=== PATIENT | female | born 1975 | race Caucasian/White ===

== ENCOUNTER 2024-04-09 18:37 | Emergency (ER) | payer BC, SELFPAY ==
--- OUTSIDE RECORDS SUMMARY | 2024-04-09 18:40 | XMS_ITS | Referral Summary ---
Author Organization [facility] Address [address] [place] [address] Care Team Providers Care Watch Assembly Inspector Name Role Phone Jacques Farley MD Primary Care Provider [phone] Allergies Active Allergy Reactions Criticality Noted Date Comments Adhesive Rash Medium 07/18/2019 Peels patient's skin off. Fluvirin [id number] Swelling,Nausea And Vomiting High 11/01/2012 Hydromorphone Hcl Nausea And Vomiting Medium 0 Penicillins Rash Medium 01/07/2009 Medications ibuprofen (ADVIL,MOTRIN) 600 mg tablet Take 1 tablet (600 mg total) by mouth 02/19/20 23 Active bacitracin-polymyx in B (POLYSPORIN) ophthalmic ointment APPLY 1 CM STRIP TO LOWER LEFT EYELID EVERY EVENING FOR 1 WEEK 07/22/19 24 Active Besivance 0.6 % drops,suspension 07/22/19 24 Active busPIRone (BUSPAR) 30 mg tablet Take 1 tablet (30 mg total) by mouth 2 (two) times a day Active ciprofloxacin (CILOXAN) 0.3 % ophthalmic solution INSTILL 1 DROP LEFT EYE FOUR TIMES DAILY FOR 7 DAYS 07/19/19 24 Active clonazePAM (KlonoPIN) 1 mg tablet Take 1 tablet (1 mg total) by mouth 3 (three) times a day as needed 10/14/19 21 Active ergocalciferol (VITAMIN D) 50,000 unit capsule Take 1 capsule (50,000 Units total) by mouth once a week 05/30/19 23 Active escitalopram (LEXAPRO) 10 mg tablet TAKE 1/2 TABLET BY MOUTH DAILY FOR 3 DAYS THEN INCREASE TO 1 TABLET DAILY Active levonorgestreL (MIRENA) IUD 1 each by intrauterine route once Active losartan (COZAAR) 50 mg tablet Take 1 tablet (50 mg total) by mouth daily 07/05/19 24 Active meloxicam (MOBIC) 15 mg tablet TAKE ONE TABLET BY MOUTH FOR 10 DAYS THEN NEEDED 01/26/20 17 Active metFORMIN XR (GLUCOPHAGE XR) 500 mg 24 hr tablet Take 3 tablets (1,500 mg total) by mouth daily 07/05/19 24 Active ondansetron ODT (ZOFRAN-ODT) 4 mg disintegrating tablet Take 1 tablet (4 mg total) by mouth every 6 (six) hours as needed 12/14/[address] (PROTONIX) 40 mg EC tablet Take 1 tablet (40 mg total) by mouth 2 (two) times a day 03/22/19 24 Active topiramate (TOPAMAX) 100 mg tablet Take by mouth nightly 11/28/19 20 Active traZODone (DESYREL) 100 mg tablet TAKE 2 TABLETS BY MOUTH AT BEDTIME NEEDED FOR INSOMNIA OR ANXIETY 07/05/19 23 Active ziprasidone (GEODON) 80 mg capsule TAKE 2 CAPSULES BY MOUTH DAILY AT DINNERTIME Active ofloxacin (OCUFLOX) 0.3 % ophthalmic solution Administer 1 drop into the left eye 4 (four) times a day 5 mL 3 07/25/19 24 Active Active Problems Problem Noted Date Diagnosed Date Chronic rhinitis 06/22/2023 Psychophysiological insomnia 07/04/2022 Vitamin D insufficiency 05/18/2020 Bipolar affective disorder, currently depressed, mild (CMS/HCC) 07/10/2019 Attention deficit disorder (ADD) in adult 2019 Essential hypertension 04/24/2019 JOSEP (generalized anxiety disorder) 04/24/2019 Panic attacks 04/24/2019 Pain of foot 01/25/2017 Insulin resistance 07/24/2016 MARY (obstructive sleep apnea) 04/01/2009 Overview (07/25/2023): CPAP trial past. Not using it. Lumbosacral spondylosis 01/07/2009 Overview (07/25/2023): Disc bulge L5-S1 MRI [facility]. About 2002 per the patient and 2005 per the patient Pain with weight up only PCOS (polycystic ovarian syndrome) 01/07/2009 Overview (07/25/2023): Dr. 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
--- OUTSIDE RECORDS SUMMARY | 2024-04-09 18:40 | XMS_ITS | Clinical Summary ---
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 Gender Identity Not on file Sexual Orientation Not on file Plan of Treatment Health Maintenance Due Date Last Done Comments Hepatitis C Virus (HCV) Screening 1977 TdaP Immunization 1977 Hepatitis B Immunization (1 of 3 - 19+ 3-dose series) 1996 Pap Smear 1998 Cervical Cancer Screening (CCS) 06/11/2007 HPV/Cotest 06/11/2007 Discussion re Starting/Frequency of Mammograms 2017 Colonoscopy 2022 Colorectal Cancer Screening 2022 Influenza Immunization (#1) 2023 SARS-COV-2 Immunization ( season) 2023 09/26/2020, 08/29/2020 Respiratory Syncytial Virus (RSV) Immunization (Adult) (1 - 1-dose 75+ series) 2052 Meningococcal Immunization (ACWY) Aged Out No longer eligible b ased on patient's age to complete this topic Pneumococcal Immunization Combined Aged Out No longer eligible b ased on patient's age to complete this topic Rotavirus Immunization Aged Out No lo nger eligible based on patient's age to complete this topic
--- OUTSIDE RECORDS SUMMARY | 2024-04-09 18:40 | XMS_ITS | Patient Health Summary ---
Author Organization [facility] joblocal Address [address] [place] [address] Care Team Providers Care Black And White Printer Operator Name Role Phone Jacques Farley MD Primary Care Provider Arielal Dela Cruz MD Unavailable Corbin Gonzalez MD Unavailable [phone] Melyssa Robles MD, Antonio S Unavailable Cinda Ochoa SEAT TRIMMER-OIL FIELD EQUIPMENT MECHANIC SUPERVISOR Unavailable [phone] Note from [facility],non-owned Affiliates and Associated Physician Practices is amultiple site organization consisting of ambulatory clinics and hospital sitesin [place], [place], [place] and [place]. This disclosure is being madepursuant to the Care Everywhere program and may not contain all information available regarding this patient. Last updated 17.[facility] Allergies * Adhesive Sensitivity(Skin Reactions) -Medium Criticality * Hydromorphone Hcl(Nausea and/or Vomiting) -Medium Criticality * Fluvirin(Swelling,Nausea and/or Vomiting) -High Criticality * Penicillins(Rash) -Medium Criticality * Viloxazine Hcl Er(Nausea and/or Vomiting) * Flu Virus Vaccine(Rash) -Medium Criticality,Inactive * Nsaids,Inactive Medications * Be aware that medications may not be up to date on this document. Alwaysverify current medications with the patient. * levonorgestrel (MIRENA) 20 MCG/DAY IUD 1 (one) device by Intrauterine route once 5-year, replaced 04/2019 * busPIRone (BUSPAR) 30 MG tablet Take 1 (one) tablet by mouth 2 times daily * topiramate (TOPAMAX) 100 MG tablet(Started 11/28/2019) TK 1 T PO HS * clonazePAM (KLONOPIN) 1 MG tablet(Started 10/13/2020) Take 1 (one) tablet by mouth 3 times daily as needed for Anxiety * ziprasidone (GEODON) 80 MG capsule(Started 07/15/2021) Take 1 (one) capsule by mouth daily with dinner * vitamin D, ergocalciferol, (Drisdol) 1.25 MG (88692 UT) capsule(Started 05/29/2022) Take 1 (one) capsule by mouth every 7 days 1 refill by 05/29/2023 * traZODone (Desyrel) 100 MG tablet(Started 07/04/2022) TAKE 2 TABLETS BY MOUTH AT BEDTIME NEEDED FOR INSOMNIA OR ANXIETY * Blood Pressure Monitoring (Blood Pressure Digital Soln) KIT(Started 06/20/2023) * escitalopram (Lexapro) 10 MG tablet(Started 06/08/2023) Take 1.5 (one and one-half) tablets by mouth once daily * metFORMIN ER 24hr (Glucophage XR) 500 MG tablet(Started 07/05/2023) Take 3 (three) tablets by mouth daily with dinner Start 1 tablet after dinner for the first 3 days,then 2 tablets after dinner for 3 days, then 3 tablets daily after dinner. Reasons: Type 2 Diabetes 5 refills by 07/04/2024 * atomoxetine (Strattera) 80 MG capsule(Started 09/28/2023) Take 1 (one) capsule by mouth every morning * hydrOXYzine HCl (Atarax) 25 MG tablet(Started 09/28/2023) Take 1 (one) tablet by mouth 2 times daily as needed (itching or anxiety) * losartan (Cozaar) 50 MG tablet(Started 01/03/2024) Take 1 (one) tablet by mouth once daily Reasons: High Blood Pressure 1 refill by 01/02/2025 * ondansetron, disintegrating, (Zofran ODT) 4 MG tablet(Started 01/03/2024) Take 1 (one) tablet by mouth every 6 hours as needed for Nausea/Vomiting Allow tablet to dissolve on the tongue * omeprazole (PriLOSEC) 40 MG capsule(Started 01/03/2024) Take 1 (one) capsule by mouth once daily Reasons: Gastroesophageal Reflux Disease 5 refills by 01/02/2025 Active Problems Problem Noted Date Diagnosed Date Nausea 01/03/2024 Psychogenic vomiting with nausea 01/03/2024 Chronic rhinitis 06/22/2023 History of colon polyps 02/04/2023 Psychophysiological insomnia 07/04/2022 Vitamin D insufficiency 05/18/2020 Bipolar affective disorder, currently depressed, mild 07/10/2019 Attention deficit disorder (ADD) in adult 2019 JOSEP (generalized anxiety disorder) 04/24/2019 Panic attacks 04/24/2019 Essential hypertension 04/24/2019 Pain of foot 01/25/2017 Insulin resistance 07/24/2016 History of removal of laparoscopic gastric derrell ng device 07/07/2015 Class 2 severe obesity due t o excess calories with serious comorbidity and body mass index (BMI) of 38.0 to 38.9 in adult 10/28/2014 Gastroesophageal reflux disease 12/23/2013 History of bariatric surgery 03/07/2013 History of gestational diabetes 04/01/2009 MARY (obstructive sleep apnea) - moderate with hy poxia 04/01/2009 Lumbosacral spondylosis 01/07/2009 PCOS (polycystic ovarian syndrome) 01/07/2009 Resolved Problems Problem Noted Date Diagnosed Date Resolved Date Abdominal pain, epigastric 02/16/2023 0 07/05/2023 Symptomatic cholelithiasis 02/16/2023 0 07/05/2023 Suspected sleep apnea 11/08/20222022 Hypokalemia 07/10/2019 07/18/2019 Urinary tract infection without hematuria 04/24/2019 06/27/2019 Coordination abnormal 11/10/20172019 Slurred speech 11/09/2017 04/24/2019 Nicotine vapor product user 09/01/2017 01/03/2024 Poison mary 06/14/2016 06/26/2016 Costochondral pain 11/01/2012 05/12/201 5 H/O laparoscopic adjustable gastric banding 04/26/2012 07/04/2016 Visual disturbance 01/04/2011 0 Cigarette smoker 02/26/2010 06/20/2017 Elevated cholesterol 01/07/2009 013 Gestational diabetes 01/07/2009 010 GERD (gastroesophageal reflux disease) 01/07/2009 04/26/2012 Moderate episode of recurren t major depressive disorder 01/07/2009 09/23/2022 Morbid obesity 01/07/2009 09/23/2022 Immunizations * HEP A/HEP B(Given 08/20/1998, 03/23/1998, 02/20/1998) * INFLUENZA VACCINE(Given 11/15/2010, 11/20/2009, 11/20/2008, 11/20/2008) * TDAP (7yrs+)(Given 01/03/2024, 03/07/2013) Social History Tobacco Use Types Packs/Day Years Used Date Smoking Tobacco: Former Cigarettes 1 23 0 02/20/1993 - 02/21/2016 Smokeless Tobacco: Never Tobacco Cessation:Counseling Given: Yes Alcohol Use Standard Drinks/Week Comments Not Currently 0 (1 standard drink = 0.6 oz pur e alcohol) not currently PHQ-2 Answer Date Recorded Patient Health Questionnaire-2 Score 2 01/03/2024 Hunger Vital Sign Answer Date Recorded Within the past 12 months, y ou worried that your food would run out before you got the money to buy more. Never true 02/18/20 23 Within the past 12 months, t he food you bought just didn't last and you didn't have money to get more. Never true 02/17/2023 Sex and Gender Information Value Date Recorded Sex Assigned at Not on file Gender Identity Not on file Sexual Orientation Not on file Last Filed Vital Signs Vital Sign Reading Time Taken Comments Blood Pressure 124/82 01/03/2024 2:40 PM MULTIPLE SLIDE OPERATOR Pulse 92 01/03/2024 2:40 PM MULTIPLE SLIDE OPERATOR Temperature 36.2 C (97.2 F) 01/03/2024 2:40 PM MULTIPLE SLIDE OPERATOR Respiratory Rate 18 03/02/2023 11:28 AM MULTIPLE SLIDE OPERATOR Oxygen Saturation 98% 01/03/2024 2:40 PM MULTIPLE SLIDE OPERATOR Inhaled Oxygen Concentration - - Weight 89.4 kg (197 lb) 01/03/2024 2:40 PM MULTIPLE SLIDE OPERATOR Height 152.4 cm (5') 07/27/2023 8:51 AM CDT Body Mass Index 38.47 07/27/2023 8:51 AM CDT Procedures * HEMOGLOBIN A1C(Performed 11/29/2023) Performed for Insulin resistance * VITAMIN D 25-HYDROXY(Performed 11/29/2023) Performed for Vitamin D insufficiency * TSH(Performed 11/29/2023) Performed for Insulin resistance, JOSEP (generalized anxiety disorder), Essential hypertension * MICROALB/CREAT RATIO URINE RANDOM PANEL(Performed 11/29/2023) Performed for Insulin resistance, Essential hypertension * LIPID PROFILE(Performed 11/29/2023) Performed for Insulin resistance, Essential hypertension * CBC W AUTO DIFFERENTIAL(Performed 11/29/2023) Performed for Insulin resistance, Essential hypertension * COMPREHENSIVE METABOLIC PANEL(Performed 11/29/2023) Performed for Insulin resistance, Essential hypertension * POLYSOMNOGRAPHY 4 OR MORE PARAMETERS WITH CPAP(Performed 04/12/2023) Performed for Hypersomnia, MARY (obstructive sleep apnea) * CARDIAC EKG ORDER(Performed 02/21/2023) * CARDIAC RHYTHM STRIP ORDER(Performed 02/21/2023) * PATHOLOGY TISSUE EXAM (STL)(Performed 02/17/2023) Performed for Diagnosis unknown * ENDOTRACHEAL TUBE NOTE(Performed 02/17/2023) * MN LAP,CHOLECYSTECTOMY(Performed 02/17/2023) Performed for Diagnosis unknown * PHOSPHORUS BLOOD(Performed 02/17/2023) Performed for Abdominal pain, epigastric * MAGNESIUM BLOOD(Performed 02/17/2023) Performed for Abdominal pain, epigastric * CBC W/O DIFFERENTIAL(Performed 02/17/2023) Performed for Abdominal pain, epigastric * COMPREHENSIVE METABOLIC PANEL(Performed 02/17/2023) Performed for Abdominal pain, epigastric * TROPONIN-I HIGH SENSITIVE REFLEX 1HOUR(Performed 02/16/2023) * US ABDOMEN LIMITED(Performed 02/16/2023) Performed for Abdominal pain, epigastric * XR CHEST 1VW PORTABLE(Performed 02/16/2023) Performed for Chest pain, unspecified type * HCG URINE QUALITATIVE(Performed 02/16/2023) * URINALYSIS REFLEX TO MICROSCOPIC NO CULTURE(Performed 02/16/2023) * TROPONIN-I HIGH SENSITIVE BASELINE + 1HR(Performed 02/16/2023) * LIPASE BLOOD(Performed 02/16/2023) * COMPREHENSIVE METABOLIC PANEL(Performed 02/16/2023) * CBC W AUTO DIFFERENTIAL(Performed 02/16/2023) * EKG 12-LEAD(Performed 02/16/2023) Performed for Chest pain, unspecified type * PATHOLOGY SPECIMEN(Performed 01/30/2023) Performed for Cervical high risk HPV (human papillomavirus) test positive * HCG URINE QUAL POCT NOTIFICATION(Performed 01/25/2023) Performed for Preop examination * PATHOLOGY TISSUE EXAM (STL)(Performed 01/25/2023) Performed for Gastroesophageal reflux disease, unspecified whether esophagitis present, History of esophagitis, Screen for colon cancer * HELICOBACTER PYLORI UREASE (STL)(Performed 01/25/2023) Performed for Gastroesophageal reflux disease, unspecified whether esophagitis present, History of esophagitis, Screen for colon cancer * ENDOSCOPY, COLON, SCREENING(Performed 01/25/2023) Performed for Screen for colon cancer * EGD(Performed 01/25/2023) Performed for Gastroesophageal reflux disease, unspecified whether esophagitis present * HCG URINE QUALITATIVE - POCT (IP) INTERFACED(Performed 01/25/2023) * COLONOSCOPY REMOVAL OR ABLATION TUMOR/POLYP/LESION (ANY METHOD)(Performed 01/25/2023) Performed for Gastroesophageal reflux disease, unspecified whether esophagitis present, History of esophagitis, Screen for colon cancer * MN COLONOSCOPY W/SUBMUCOSAL INJ(Performed 01/25/2023) Performed for Gastroesophageal reflux disease, unspecified whether esophagitis present, History of esophagitis, Screen for colon cancer * MN EGD FLEX TRANSORAL W BX SNGL OR MULT(Performed 01/25/2023) Performed for Gastroesophageal reflux disease, unspecified whether esophagitis present, History of esophagitis, Screen for colon cancer * MN COLONOSCOPY, DIAGNOSTIC(Performed 01/25/2023) Performed for Gastroesophageal reflux disease, unspecified whether esophagitis present, History of esophagitis, Screen for colon cancer * MN ED EGD FLEX TRANSORAL DX(Performed 01/25/2023) Performed for Gastroesophageal reflux disease, unspecified whether esophagitis present, History of esophagitis, Screen for colon cancer * PAP IG LB+HPV APTIMA(Performed 01/16/2023) Performed for Well woman exam * EKG 12-LEAD(Performed 12/15/2022) Performed for Other chest pain * HEMOGLOBIN A1C(Performed 05/28/2022) Performed for Insulin resistance * LIPID PROFILE(Performed 05/28/2022) Performed for Essential hypertension, Insulin resistance * CBC W AUTO DIFFERENTIAL(Performed 05/28/2022) Performed for Essential hypertension, Insulin resistance * MICROALB/CREAT RATIO URINE RANDOM PANEL(Performed 05/28/2022) Performed for Essential hypertension, Insulin resistance * COMPREHENSIVE METABOLIC PANEL(Performed 05/28/2022) Performed for Essential hypertension, Insulin resistance * VITAMIN D 25-HYDROXY(Performed 05/28/2022) Performed for Vitamin D insufficiency * VITAMIN D 25-HYDROXY(Performed 11/13/2020) * LIPID PROFILE(Performed 11/13/2020) * CBC W AUTO DIFFERENTIAL(Performed 11/13/2020) * HEMOGLOBIN A1C(Performed 11/13/2020) Performed for Insulin resistance * MICROALB/CREAT RATIO URINE RANDOM PANEL(Performed 11/13/2020) Performed for Essential hypertension, Insulin resistance * COMPREHENSIVE METABOLIC PANEL(Performed 11/13/2020) Performed for Essential hypertension, Insulin resistance * PAP IG LB + HPV HR(Performed 11/25/2019) Performed for LGSIL on Pap smear of cervix * PAP IG LB + HPV HR(Performed 08/26/2019) Performed for LGSIL on Pap smear of cervix * VITAMIN D 25-HYDROXY(Performed 08/26/2019) Performed for Insulin resistance, Class 1 obesity due to excess calories without serious comorbidity with body mass index (BMI) of 33.0 to 33.9 in adult * HEMOGLOBIN A1C(Performed 08/26/2019) Performed for History of gestational diabetes, Insulin resistance, Class 1 obesity due to excess calories without serious comorbidity with body mass index (BMI) of 33.0 to 33.9 in adult * MICROALB/CREAT RATIO URINE RANDOM PANEL(Performed 08/26/2019) Performed for Essential hypertension, Insulin resistance, Class 1 obesity due to excess calories without serious comorbidity with body mass index (BMI) of 33.0 to 33.9 in adult * COMPREHENSIVE METABOLIC PANEL(Performed 08/26/2019) Performed for Essential hypertension, Insulin resistance, Class 1 obesity due to excess calories without serious comorbidity with body mass index (BMI) of 33.0 to 33.9 in adult * CARDIAC RHYTHM STRIP ORDER(Performed 07/19/2019) * CARDIAC EKG ORDER(Performed 07/10/2019) * CALCIUM IONIZED BLOOD(Performed 07/10/2019) Performed for Hypokalemia * RENAL FUNCTION PANEL(Performed 07/10/2019) Performed for Hypokalemia * BASIC METABOLIC PANEL (CALCIUM TOTAL)(Performed 07/09/2019) * URINE MICROSCOPIC ONLY REFLEX TO CULTURE(Performed 07/09/2019) * URINALYSIS REFLEX MICROSCOPIC REFLEX CULTURE(Performed 07/09/2019) * CULTURE URINE(Performed 07/09/2019) * EKG 12-LEAD(Performed 07/09/2019) Performed for Hypokalemia * MAGNESIUM BLOOD(Performed 07/09/2019) * HCG BETA BLOOD QUANTITATIVE(Performed 07/09/2019) * COMPREHENSIVE METABOLIC PANEL(Performed 07/09/2019) * CBC W AUTO DIFFERENTIAL(Performed 07/09/2019) * VITAMIN D 25-HYDROXY(Performed 07/05/2019) Performed for Insulin resistance, Class 1 obesity due to excess calories without serious comorbidity with body mass index (BMI) of 33.0 to 33.9 in adult * LIPID PROFILE(Performed 07/05/2019) Performed for Essential hypertension * CBC W AUTO DIFFERENTIAL(Performed 07/05/2019) Performed for Essential hypertension * HEMOGLOBIN A1C(Performed 07/05/2019) Performed for PCOS (polycystic ovarian syndrome), History of gestational diabetes, Insulin resistance, Class 1 obesity due to excess calories without serious comorbidity with body mass index (BMI) of33.0 to 33.9 in adult * MICROALB/CREAT RATIO URINE RANDOM PANEL(Performed 07/05/2019) Performed for Essential hypertension * COMPREHENSIVE METABOLIC PANEL(Performed 07/05/2019) Performed for Essential hypertension * PATHOLOGY SPECIMEN(Performed 05/21/2019) Performed for LGSIL on Pap smear of cervix * US TRANSVAGINAL NON OB(Performed 05/10/2019) Performed for Intrauterine contraceptive device threads lost, initial encounter * HIV-1 RNA QUALITATIVE RFLXD(Performed 05/08/2019) Performed for STD exposure * HERPES SIMPLEX 1+2 ANTIBODY IGG/IGM PANEL(Performed 05/08/2019) Performed for STD exposure * RPR(Performed 05/08/2019) Performed for STD exposure * HIV-1 HIV-2 ANTIBODY W REFLX(Performed 05/08/2019) Performed for STD exposure * HEPATITIS C ANTIBODY(Performed 05/08/2019) Performed for STD exposure * HEPATITIS B SURFACE ANTIGEN W RFLX CONFIRMATION(Performed 05/08/2019) Performed for STD exposure * PAP IG LB + HPV HR(Performed 05/08/2019) Performed for Well woman exam * VAGINITIS PLUS (BV CA CT NG TRICH)(Performed 05/08/2019) Performed for STD exposure * URINALYSIS MICROSCOPIC ONLY REFLEXED(Performed 04/24/2019) Performed for Urinary tract infection without hematuria, site unspecified * LIPID PROFILE(Performed 04/24/2019) Performed for Essential hypertension * URINALYSIS REFLEX MICROSCOPIC REFLEX CULTURE(Performed 04/24/2019) Performed for Urinary tract infection without hematuria, site unspecified * CULTURE URINE(Performed 04/24/2019) Performed for Urinary tract infection without hematuria, site unspecified * CBC W AUTO DIFFERENTIAL(Performed 04/24/2019) Performed for Attention deficit disorder (ADD) in adult, Essential hypertension * CARDIAC RHYTHM STRIP ORDER(Performed 11/13/2017) * RPR(Performed 11/10/2017) * CK + CKMB PANEL(Performed 11/10/2017) * ACETYLCHOLINE RECEPTOR ANTIBODY PANEL(Performed 11/10/2017) * LYME DISEASE PCR(Performed 11/10/2017) * ERYTHROCYTE SEDIMENTATION RATE(Performed 11/10/2017) * MRI BRAIN WWO CONTRAST(Performed 11/10/2017) Performed for Slurred speech * ECHOCARDIOGRAM 2D WITH DOPPLER(Performed 11/10/2017) Performed for Slurred speech * URINALYSIS REFLEX MICROSCOPIC REFLEX CULTURE(Performed 11/10/2017) Performed for Insulin resistance * BASIC METABOLIC PANEL (CALCIUM TOTAL)(Performed 11/10/2017) Performed for Insulin resistance * LIPID PROFILE(Performed 11/10/2017) Performed for Insulin resistance * CT ANGIO BRAIN AND NECK(Performed 11/09/2017) Performed for Slurred speech * CT HEAD WO CONTRAST(Performed 11/09/2017) Performed for Slurred speech * HCG URINE QUALITATIVE - POCT (IP) INTERFACED(Performed 11/09/2017) * PT PTT PANEL(Performed 11/09/2017) * COMPREHENSIVE METABOLIC PANEL(Performed 11/09/2017) * CBC W AUTO DIFFERENTIAL(Performed 11/09/2017) * HCG URINE QUAL POCT NOTIFICATION(Performed 11/09/2017) * LIPID PROFILE(Performed 08/21/2017) Performed for Essential hypertension * MICROALB/CREAT RATIO URINE RANDOM PANEL(Performed 08/21/2017) Performed for PCOS (polycystic ovarian syndrome) * TSH REFLEX FREE T4(Performed 08/21/2017) Performed for PCOS (polycystic ovarian syndrome) * HEMOGLOBIN A1C(Performed 08/21/2017) Performed for PCOS (polycystic ovarian syndrome) * COMPREHENSIVE METABOLIC PANEL(Performed 08/21/2017) Performed for Essential hypertension * CBC W/O DIFFERENTIAL(Performed 08/21/2017) Performed for Essential hypertension * US TRANSVAG ONLY(Performed 08/11/2016) Performed for IUD check up * PAP IG LB + HPV HR(Performed 07/21/2016) Performed for Well woman exam * HEMOGLOBIN A1C(Performed 07/09/2016) Performed for Weight gain, PCOS (polycystic ovarian syndrome), Depression with anxiety * LIPID PROFILE(Performed 07/09/2016) Performed for Weight gain, PCOS (polycystic ovarian syndrome), Depression with anxiety * CBC W AUTO DIFFERENTIAL(Performed 07/09/2016) Performed for Weight gain, PCOS (polycystic ovarian syndrome), Depression with anxiety * TSH(Performed 07/09/2016) Performed for Cold intolerance, Weight gain, PCOS (polycystic ovarian syndrome), Depression with anxiety * COMPREHENSIVE METABOLIC PANEL(Performed 07/09/2016) Performed for Weight gain, PCOS (polycystic ovarian syndrome), Depression with anxiety * FL FLUORO UPPER GI TRACT + KUB(Performed 07/08/2015) Performed for Abdominal pain, acute, epigastric, Blurring, left eye, Pain in left eye, Admission for removal of gastric lap band, Depression with anxiety, PCOS (polycystic ovarian syndrome), History of gestational diabetes, MARY (obstructive sleep apnea), Cigarette smoker, Visual disturbance, H/O lap aroscopic adjustable gastric banding, History of bariatric surgery * COMPREHENSIVE METABOLIC PANEL(Performed 07/08/2015) * CBC W AUTO DIFFERENTIAL(Performed 07/08/2015) * GLUCOSE - POINT OF CARE(Performed 07/07/2015) * CARDIAC EKG ORDER(Performed 07/07/2015) * HCG URINE QUALITATIVE - POINT OF CARE(Performed 07/07/2015) * LAPAROSCOPIC REMOVAL/REPLACEMENT GASTRIC BAND(Performed 07/07/2015) * URINALYSIS REFLEX MICROSCOPIC REFLEX CULTURE(Performed 07/07/2015) * TROPONIN I(Performed 07/07/2015) * LIPASE BLOOD(Performed 07/06/2015) * TROPONIN I(Performed 07/06/2015) * COMPREHENSIVE METABOLIC PANEL(Performed 07/06/2015) * CBC W AUTO DIFFERENTIAL(Performed 07/06/2015) * EKG 12-LEAD(Performed 07/06/2015) * ESOPHAGOGASTRODUODENOSCOPY (EGD) DIAGNOSTIC(Performed 07/03/2015) * HCG URINE QUALITATIVE - POINT OF CARE(Performed 07/03/2015) * FL UGI SERIES(Performed 07/02/2015) Performed for Gastroesophageal reflux disease, esophagitis presence not specified, Vomiting withoutnausea, unspecified intactability, vomiting of unspecified type * ESOPHAGOGASTRODUODENOSCOPY (EGD) DIAGNOSTIC(Performed 08/19/2014) * CBC W AUTO DIFFERENTIAL(Performed 08/19/2014) * BASIC METABOLIC PANEL (CALCIUM TOTAL)(Performed 08/19/2014) * CT ABDOMEN PELVIS W CONTRAST(Performed 08/18/2014) Performed for Abdominal pain, generalized, Nausea and vomiting, History of bariatric surgery * URINALYSIS REFLEX MICROSCOPIC REFLEX CULTURE(Performed 08/18/2014) * HCG BLOOD QUALITATIVE(Performed 08/18/2014) * LIPASE BLOOD(Performed 08/18/2014) * COMPREHENSIVE METABOLIC PANEL(Performed 08/18/2014) * CBC W AUTO DIFFERENTIAL(Performed 08/18/2014) * XR CHEST 2VW(Performed 05/27/2014) Performed for Chest pain * LIPASE BLOOD(Performed 05/27/2014) * COMPREHENSIVE METABOLIC PANEL(Performed 05/27/2014) * CBC W AUTO DIFFERENTIAL(Performed 05/27/2014) * TROPONIN I(Performed 05/27/2014) * EKG 12-LEAD(Performed 05/27/2014) Performed for Chest pain * COLONOSCOPY(Performed 08/03/2012) * ENDOSCOPY, COLON, DIAGNOSTIC(Performed 08/03/2012) * HCG URINE QUALITATIVE - POINT OF CARE(Performed 08/03/2012) * PATHOLOGY TISSUE EXAM (STL)(Performed 08/03/2012) Performed for Screen for colon cancer * CULTURE STOOL PANEL(Performed 04/30/2012) Performed for Diarrhea * XR ABD OBSTR SERIES W CHEST 1VW(Performed 04/30/2012) Performed for Nausea with vomiting * AMYLASE BLOOD(Performed 04/29/2012) * LIPASE BLOOD(Performed 04/29/2012) * COMPREHENSIVE METABOLIC PANEL(Performed 04/29/2012) * CBC W AUTO DIFFERENTIAL(Performed 04/29/2012) * HCG URINE QUALITATIVE - POINT OF CARE(Performed 04/29/2012) * URINALYSIS REFLEX MICROSCOPIC REFLEX CULTURE(Performed 04/29/2012) * REF LAB-REQUEST PROBLEM(Performed 04/28/2012) * FECAL LEUKOCYTES(Performed 04/28/2012) Performed for Diarrhea * C DIFFICILE TOXIN A+B(Performed 04/28/2012) Performed for Diarrhea * TSH(Performed 04/28/2012) Performed for Depression with anxiety * CBC W AUTO DIFFERENTIAL(Performed 04/28/2012) Performed for Diarrhea * VITAMIN B12 FOLATE PANEL(Performed 04/28/2012) Performed for Diarrhea, H/O laparoscopic adjustable gastric banding * COMPREHENSIVE METABOLIC PANEL(Performed 04/28/2012) Performed for Diarrhea * URINALYSIS MICROSCOPIC ONLY REFLEXED(Performed 03/16/2012) Performed for UTI (urinary tract infection) * URINALYSIS REFLEX TO MICROSCOPIC NO CULTURE(Performed 03/16/2012) Performed for UTI (urinary tract infection) * CARDIAC EKG ORDER(Performed 12/26/2011) * FL LAPBAND ADJUST VIA PORT(Performed 06/21/2011) Performed for Morbid obesity (HCC) * FL LAPBAND ADJUST VIA PORT(Performed 01/29/2010) Performed for Nausea with vomiting * FL LAPBAND ADJUST VIA PORT(Performed 01/28/2010) Performed for Morbid obesity (HCC) * FL LAPBAND ADJUST VIA PORT(Performed 12/31/2009) Performed for Morbid obesity (HCC) * FL UGI SERIES(Performed 12/01/2009) Performed for LAP-BAND surgery status * FL LAPBAND ADJUST VIA PORT(Performed 11/26/2009) Performed for Morbid obesity (HCC) * FL LAPBAND ADJUST VIA PORT(Performed 10/22/2009) Performed for Morbid Obesity (HCC) * CYTOLOGY STUDY PANEL(Performed 07/21/2009) * CYTOLOGY STUDY PANEL(Performed 07/21/2009) Performed for Noninflammatory Dis Ova/Adnx * PULSE OXIMETRY, CONTINUOUS(Performed 07/21/2009) * OXYGEN(Performed 07/21/2009) * GROSS + MICRO EXAM(Performed 07/21/2009) * GROSS + MICRO EXAM(Performed 07/21/2009) Performed for Noninflammatory Dis Ova/Adnx * CYTOLOGY STUDY PANEL(Performed 07/21/2009) * CYTOLOGY STUDY PANEL(Performed 07/21/2009) Performed for Noninflammatory Dis Ova/Adnx * TYPE + SCREEN PANEL(Performed 07/21/2009) Performed for Noninflammatory Dis Ova/Adnx * BASIC METABOLIC PANEL (CALCIUM TOTAL)(Performed 07/21/2009) Performed for Noninflammatory Dis Ova/Adnx * CBC W AUTO DIFFERENTIAL(Performed 07/21/2009) Performed for Noninflammatory Dis Ova/Adnx * HCG URINE QUALITATIVE - POINT OF CARE(Performed 07/21/2009) * CARDIAC EKG ORDER(Performed 06/29/2009) * ZINC BLOOD(Performed 06/24/2009) Performed for Morbid Obesity (HCC) * VITAMIN D 25-HYDROXY(Performed 06/24/2009) Performed for Morbid Obesity (HCC) * VITAMIN B12(Performed 06/24/2009) Performed for Morbid Obesity (HCC) * VITAMIN B1(Performed 06/24/2009) Performed for Morbid Obesity (HCC) * HCG BLOOD QUALITATIVE(Performed 06/24/2009) Performed for Morbid Obesity (HCC) * IRON BLOOD(Performed 06/24/2009) Performed for Morbid Obesity (HCC) * LIPID PROFILE(Performed 06/24/2009) Performed for Elevated Cholesterol, Morbid Obesity (HCC) * MAGNESIUM BLOOD(Performed 06/24/2009) Performed for Morbid Obesity (HCC) * PT-INR(Performed 06/24/2009) Performed for Morbid Obesity (HCC) * PTH INTACT(Performed 06/24/2009) Performed for Morbid Obesity (HCC) * FOLATE RBC(Performed 06/24/2009) Performed for Morbid Obesity (HCC) * FERRITIN(Performed 06/24/2009) Performed for Morbid Obesity (HCC) * XR CHEST 2VW(Performed 06/24/2009) Performed for Morbid Obesity (HCC) * PFT-LAB(Performed 06/24/2009) * GROSS + MICRO EXAM(Performed 04/29/2009) Performed for Esophageal Reflux * POLYSOMNOGRAPHY 4 OR MORE PARAMETERS(Performed 03/14/2009) * POLYSOMNOGRAPHY 4 OR MORE PARAMETERS(Performed 03/03/2009) * TSH(Performed 01/28/2009) Performed for Other Malaise and Fatigue, Gestational Diabetes (HCC), Depression with Anxiety * CBC W AUTO DIFFERENTIAL(Performed 01/28/2009) Performed for Gestational Diabetes (HCC), Depression with Anxiety * COMPREHENSIVE METABOLIC PANEL(Performed 01/28/2009) Performed for Other Malaise and Fatigue, Gestational Diabetes (HCC), Depression with Anxiety * LIPID PROFILE W TCHOL/HDL(Performed 01/28/2009) Performed for Gestational Diabetes (HCC), Morbid Obesity (HCC), Screening for Lipoid Disorders * CBC W AUTO DIFFERENTIAL(Performed 09/06/2007) * HGB HCT PANEL(Performed 09/02/2007) * GROSS + MICRO EXAM(Performed 09/02/2007) * GROSS + MICRO EXAM(Performed 09/02/2007) * CBC W AUTO DIFFERENTIAL(Performed 09/02/2007) * GROSS + MICRO EXAM(Performed 07/10/2002) Results * MICROALB/CREAT RATIO URINE RANDOM PANEL (11/29/2023 4:00 PM CDT) Only the most recent of6 resultswithin the time period is included. Creatinine Urine 85.8 Not Estab. mg/dL [facility] ACCOUNT BILL Microalbumin Urine 8.9 Not Estab. ug/mL [facility] ACCOUNT BILL Microalbumin/Crea tinine Ratio 10 0 - 29 mg/g creat [facility] ACCOUNT BILL Comment: Normal: 0 - 29 Moderately increased: 30 - 300 Severely increased: >300 Urine URINE SPECIMEN OBTAINED BY CLEAN CATCH PROCEDURE / Unknown 11/29/2023 4:00 PM CDT 11/29/2023 Narrative [facility] ACCOUNT BILL - 11/30/2023 10:12 AM CDT Performed at: [address] [id number] Customer Experience Associate: Davian Ash PhD, Phone: [phone] Jacques Farley MD LAB - URINE CHEMISTR Y ORDERABLES [facility] ACCOUNT BILL [address] [place] [address] * (ABNORMAL) HEMOGLOBIN A1C (11/29/2023 4:00 PM CDT) Only the most recent of7 resultswithin the time period is included. Hemoglobin A1c 5.7(H) 4.8 - 5.6 % [facility] ACCOUNT BILL Comment: Prediabetes: 5.7 - 6.4 Diabetes: >6.4 Glycemic control for adults with diabetes: <7.0 Blood BLOOD SPECIMEN / Unknown 11/29/2023 4:00 PM CDT 11/29/2023 Narrative [facility] ACCOUNT BILL - 11/30/2023 8:18 AM CDT Performed at: [address] [id number] Customer Experience Associate: Davian Ash PhD, Phone: [phone] Jacques Farley MD LAB - CHEMISTRY HAYLIE BAPTISTE [facility] ACCOUNT BILL [address] [place] [address] * (ABNORMAL) VITAMIN D 25-HYDROXY (11/29/2023 4:00 PM CDT) Only the most recent of6 resultswithin the time period is included. Vitamin D, 25 Hydroxy 24.5(L) 30.0 - 100.0 ng/mL [facility] ACCOUNT BILL Comment: Vitamin D deficiency has been defined by the [place] of [employer] and an Endocrine Society practice guideline as a level of serum 25-OH vitamin D less than 20 ng/mL (1,2). The Endocrine Society went on to further define vitamin D insufficiency as a level between 21 and 29 ng/mL (2). 1. IOM ([place] of Medicine). 2010. Dietary reference intakes for calcium and D. [place]: The National Academies Press. 2. Carin MF, Juan VALENZUELA, Cata CHURCH, et al. Evaluation, treatment, and prevention of vitamin D deficiency: an Endocrine Society clinical practice guideline. JCEM. 2010; 96(7):1911-30. Blood BLOOD SPECIMEN / Unknown 11/29/2023 4:00 PM CDT 11/29/2023 Narrative [facility] ACCOUNT BILL - 11/30/2023 8:18 AM CDT Performed at: 01 - [address] [id number] Customer Experience Associate: Davian Ash PhD, Phone: [phone] Jacques Farley MD LAB - CHEMISTRY HAYLIE BAPTISTE [facility] ACCOUNT BILL [address] [place] [address] * (ABNORMAL) CBC WITH DIFFERENTIAL (11/29/2023 4:00 PM CDT) Only the most recent of20 resultswithin the time period is included. WBC 8.9 3.4 - 10.8 x10E3/uL [facility] ACCOUNT BILL RBC 4.59 3.77 - 5.28 x10E6/uL [facility] ACCOUNT BILL Hemoglobin 13.6 11.1 - 15.9 g/dL [facility] ACCOUNT BILL Hematocrit 42.1 34.0 - 46.6 % [facility] ACCOUNT BILL MCV 92 79 - 97 fL [facility] ACCOUNT BILL MCH 29.6 26.6 - 33.0 pg [facility] ACCOUNT BILL MCHC 32.3 31.5 - 35.7 g/dL [facility] ACCOUNT BILL RDW 12.8 11.7 - 15.4 % [facility] ACCOUNT BILL Platelet Count 428 150 - 450 x10E3/uL [facility] ACCOUNT BILL Granulocytes % 51 Not Estab. % [facility] ACCOUNT BILL Lymphocytes % 39 Not Estab. % [facility] ACCOUNT BILL Monocytes % 7 Not Estab. % [facility] ACCOUNT BILL Eosinophils % 2 Not Estab. % [facility] ACCOUNT BILL Basophils % 1 Not Estab. % [facility] ACCOUNT BILL Granulocytes Absolute 4.5 1.4 - 7.0 x10E3/uL [facility] ACCOUNT BILL Lymphocytes Absolute 3.5(H) 0.7 - 3.1 x10E3/uL [facility] ACCOUNT BILL Monocytes Absolute 0.6 0.1 - 0.9 x10E3/uL [facility] ACCOUNT BILL Eosinophils Absolute 0.2 0.0 - 0.4 x10E3/uL [facility] ACCOUNT BILL Basophils Absolute 0.1 0.0 - 0.2 x10E3/uL [facility] ACCOUNT BILL Immature Granulocytes 0 Not Estab. % [facility] ACCOUNT BILL Immature Granulocytes Absolute 0.0 0.0 - 0.1 x10E3/uL [facility] ACCOUNT BILL Blood BLOOD SPECIMEN / Unknown 11/29/2023 4:00 PM CDT 11/29/2023 Narrative [facility] ACCOUNT BILL - 11/30/2023 7:11 AM CDT Performed at: 01 - [facility] [address] [id number] Customer Experience Associate: Davian Ash PhD, Phone: [phone] Jacques Farley MD LAB - HEMATOLOGY ORD ERABLES [facility] ACCOUNT BILL [address] [place] [address] * (ABNORMAL) COMPREHENSIVE METABOLIC PANEL (11/29/2023 4:00 PM CDT) Only the most recent of18 resultswithin the time period is included. Glucose CANCELED mg/dL [facility] ACCOUNT BILL Comment: Test not performed. Serum was in contact with cells when received which will make the result inaccurate. Result canceled by the ancillary. BUN 7 6 - 24 mg/dL [facility] ACCOUNT BILL Creatinine 0.68 0.57 - 1.00 mg/dL [facility] ACCOUNT BILL eGFR by CKD-EPI 109 >59 mL/min/1.7 3 [facility] ACCOUNT BILL BUN/Creatinine Ratio 10 9 - 23 [facility] ACCOUNT BILL Sodium 140 134 - 144 mmol/L [facility] ACCOUNT BILL Potassium CANCELED mmol/L [facility] ACCOUNT BILL Comment: Test not performed. Serum was in contact with cells when received which will make the result inaccurate. Result canceled by the ancillary. Chloride 105 96 - 106 mmol/L [facility] ACCOUNT BILL CO2 19(L) 20 - 29 mmol/L [facility] ACCOUNT BILL Calcium 8.9 8.7 - 10.2 mg/dL [facility] ACCOUNT BILL Protein Total 6.7 6.0 - 8.5 g/dL [facility] ACCOUNT BILL Albumin 4.2 3.9 - 4.9 g/dL [facility] ACCOUNT BILL Globulin Total 2.5 1.5 - 4.5 g/dL [facility] ACCOUNT BILL Bilirubin Total 0.3 0.0 - 1.2 mg/dL [facility] ACCOUNT BILL Alkaline Phosphatase 92 44 - 121 IU/L [facility] ACCOUNT BILL AST 18 0 - 40 IU/L [facility] ACCOUNT BILL ALT 14 0 - 32 IU/L [facility] ACCOUNT BILL Blood BLOOD SPECIMEN / Unknown 11/29/2023 4:00 PM CDT 11/29/2023 Narrative [facility] ACCOUNT BILL - 11/30/2023 8:18 AM CDT Performed at: 01 - [address] [id number] Customer Experience Associate: Davian Ash PhD, Phone: [phone] Jacques Farley MD LAB - CHEMISTRY HAYLIE BAPTISTE [facility] ACCOUNT BILL [address] [place] [address] * (ABNORMAL) TSH (11/29/2023 4:00 PM CDT) Only the most recent of4 resultswithin the time period is included. TSH 4.560(H) 0.450 - 4.500 uIU/mL [facility] ACCOUNT BILL Blood BLOOD SPECIMEN / Unknown 11/29/2023 4:00 PM CDT 11/29/2023 Narrative [facility] ACCOUNT BILL - 11/30/2023 8:18 AM CDT Performed at: - [address] [id number] Customer Experience Associate: Davian Ash PhD, Phone: [phone] Jacques Farley MD LAB - CHEMISTRY HAYLIE BAPTISTE Performing Organization Address City/[facility]/ZIP Co de Phone Number [facility] ACCOUNT BILL [address] [place] [address] * LIPID PROFILE (11/29/2023 4:00 PM CDT) Only the most recent of9 resultswithin the time period is included. Cholesterol 149 100 - 199 mg/dL [facility] ACCOUNT BILL Triglycerides 84 0 - 149 mg/dL [facility] ACCOUNT BILL HDL Cholesterol 50 >39 mg/dL [facility] ACCOUNT B[facility] VLDL Calculated 16 5 - 40 mg/dL [facility] ACCOUNT BILL LDL Calculated 83 0 - 99 mg/dL [facility] ACCOUNT BILL Blood BLOOD SPECIMEN / Unknown 11/29/2023 4:00 PM CDT 11/29/2023 Narrative [facility] ACCOUNT BILL - 11/30/2023 8:18 AM CDT Performed at: - [address] [id number] Customer Experience Associate: Davian Ash PhD, Phone: [phone] Jacques Farley MD LAB - CHEMISTRY HAYLIE BAPTISTE Performing Organization Address City/[facility]/ZIP Co de Phone Number [facility] ACCOUNT BILL [address] [place] [address] * POLYSOMNOGRAM WITH CPAP IF INDICATED (04/12/2023 7:45 PM MULTIPLE SLIDE OPERATOR) Narrative Maxi Beaulieu MD - 04/12/2023 7:45 PM MULTIPLE SLIDE OPERATOR Maxi Beaulieu MD 04/12/2023 7:48 PM [facility] Accredited by The [place] [employer] SPLIT NIGHT TITRATION REPORT PATIENT NAME: Smitha Khan DATE OF : 1975 study Date: 2023-04-11 DATE OF INTERPRETATION: April 12, 2023 Referring Physician: KATINA Ribera cLINICAL iNDICATIONS: Symptoms suggestive of sleep apnea based on snoring, witnessed apnea and hypersomnia. Marvin Sleepiness Score of 18/24.The patient is a 47 year old Female who is 5' 1 and weighs 195.0 lbs. Her BMI equals 37.3. A diagnostic polysomnogram was performed to evaluate for sleep apnea. After 165.5 minutes of sleep time the patient exhibited sufficient respiratory events qualifying her for a CPAP trial which was then initiated. Polysomnogram Data: Overnight electronic systems technician attended split night titration was carried out utilizing continuous digital monitoring at the [facility]. Montage included measurements of EEG (electroencephalography), EOG (electro-oculography), EMG (electromyography), EKG, nasal and oral airflow (PTAF and thermistor), respiratory effort (abdominal and rib care movement RIP belts), oxygen saturation, snoring sounds, body position, video monitoring and limb movements. All data was visually scored and analyzed by standard criteria. All events are scored according to the current AASM criteria IA. Hypopneas have a 30% reduction in air flow signals with a ?3% oxygen desaturation from pre-event baseline or the event is associated with an arousal. IB Hypopneas have a 30% reduction in air flow signal with a ?4% oxygen desaturation from pre-event baseline. FINDINGS - Diagnostic section: Sleep Architecture: Lights out: 08:33:40 PM Lights On: 12:28:11 AM The total recording time was 234.5 minutes. The total sleep time was 165.5 minutes, total sleep time supine was 0 minute. Sleep latency was 55.0 minutes with a sleep efficiency of 70.6% which is below normal .This may be related to the unfamiliar environment of the sleep center (First night effect), insomnia and Sleep disordered breathing. Total number of arousals were 14 with an arousal index of 5.1 per hour. Sleep Stages: N1 Sleep: 6.3% N2 Sleep: 69.2% N3 Sleep: 24.5% REM Sleep: 0.0% REM latency : no REM diagnostic sleep data. Respiratory Monitoring:<NREM or REM> The diagnostic section revealed a presence of 44 Apnea events (44 obstructive, - central, and - mixed apneas). There were 15 1B Hypopneas resulting in a CMS 1B AHI of 21.4 events per hour. There was no REM or supine position diagnostic sleep data. None-supine index was 21.4 per hour. There were 16 1A Hypopnea events scored, for an AASM 1A RDI of 21.8. None-supine index was 21.8 per hour. Based on these findings the patient has moderate obstructive Sleep Apnea (MARY) with loud snoring noted in the study. Oxygen Data: Oxygen desaturations did occur to as low as 85.0%, with a mean oxygen saturation of 96.0%. It was associated with respiratory events. Oxygen saturation remained ?88% for 2.0 minutes. Movement Events: Periodic Limb Movements were present with an index of 2.5 per hour with an arousal index of 0 per hour. Cardiac Monitoring: No significant arrhythmias were detected during the sleep study. The average pulse rate while asleep was 79 bpm. Unusual behavior during sleep: None FINDINGS - Titration section: Sleep Architecture: Lights out: 12:28:11 AM Lights On: 04:47:57 AM The total recording time was 259.8 minutes. The total sleep time was 247.5 minutes, total sleep time supine was 78.5 minutes. Sleep latency was 7.0 minutes with a sleep efficiency of 95.3% which is normal. Total number of arousals were 15 with an arousal index of 3.6 per hour. Sleep Stages: N1 Sleep: 2.0% N2 Sleep: 57.4% N3 Sleep: 5.3% REM Sleep: 35.4% REM latency is 82.0 minutes. Respiratory Monitoring: CPAP/BiPAP titration was started at 4 cm H2O and titrated up to 13 cm H2O for eradication of apneas, hypopneas and snoring. There was no best pressure sleeping on supine body position. CPAP of 5 cm H2O was the best pressure tested. At best tested setting residual AHI was 1.5 per hour using 1B and 1A rules. The patient slept for 39.5 minutes of therapeutic data at best setting in lateral position out of which 4 minutes of REM none-supine position with control of respiratory events. Lowest oxygen saturation at best setting was 93%. Mask used was small size Simplus type.. CPAP of 7 cm H2O was the second best pressure tested. At second best tested setting residual AHI was 3.5 per hour using 1B and 1A rules. The patient slept for 85 minutes of therapeutic data at second best setting in lateral position out of which 50 minutes of REM none-supine position with control of respiratory events. Lowest oxygen saturation at second best setting was 89%. Nocturnal hypoxemia resolved with CPAP treatment. Additional oxygen was not required and Oxygen saturation less than 88% for 0 minute at best pressure tested. Snoring was not observed with CPAP. REM rebound, improved sleep architecture improved saturation and reduced arousals were observed on CPAP application. There was no best PAP setting in supine position sleep. Oxygen Data: Oxygen desaturations did occur to as low as 89.0%, with a mean oxygen saturation of 96.2%. It was associated with respiratory events. Oxygen saturation remained ?88% for 0 minute. Movement Events: Periodic Limb Movements were present with an index of 1.0 per hour with an arousal index of 0 per hour.. Cardiac Monitoring: No significant arrhythmias were detected during the sleep study. The average pulse rate while asleep was 78 bpm. IMPRESSION: Patient with moderate sleep apnea and nocturnal desaturation based on AHI of 21.8 events per hour of sleep using 1A and 21.4 per hour using 1B rule. Patient spent 2 minutes of diagnostic time with saturation below 89%. Best CPAP settings were 5 and 7 cm H2O. At best settings adequate REM and NREM none-supine position data recorded with control of respiratory events. There was no best supine position therapeutic data and patient will benefit from APAP mode of therapy. DIAGNOSIS Obstructive Sleep Apnea (G47.33) RECOMMENDATIONS: 1. Patient should be treated for sleep apnea with positive airway pressure therapy APAP at a pressure 5-10 cm H2O with a heated humidifier. Advise predominant none-supine sleep. 2. Patient should be scheduled for a follow up appointment in 8-10 weeks to check APAP compliance and clinical improvement. 3. Some other treatment options for patients with sleep apnea include weight reduction, dental appliances, positional therapy, hypoglossal nerve stimulation and correction of upper airways. This should be individualized based on patient's characteristics, symptoms and co morbidities. But not as effective as CPAP with increasing severity of sleep disordered breathing. 4. Patient should be advised against driving or operating heavy equipment if has symptoms of excessive day time sleepiness. 5. Caution should be taken in the use of sedative and alcohols since they have known to make the sleep disordered breathing worse. I have personally reviewed the entire raw data on the overnight PSG including the patient questionnaire, electronic systems technician notes and associated all the tabulated data. FOLLOW UP: Ordering physician will call the patient and arrange for follow up. Maxi Beaulieu MD Speech And Language Assistantradial drill press operator Center [facility] Diplomat of the [place] [employer] and Neurology Board certified in Sleep Medicine Cinda Ochoa [facility] TRIMMER[facility] R ORDERABLES * CARDIAC EKG ORDER (02/21/2023 6:57 PM MULTIPLE SLIDE OPERATOR) Only the most recent of5 resultswithin the time period is included. Narrative 02/21/2023 6:57 PM MULTIPLE SLIDE OPERATOR Ordered by an unspecified provider. Scanned Document CARDIAC SERVICES ORD ERABLES * CARDIAC RHYTHM STRIP ORDER (02/21/2023 6:40 PM MULTIPLE SLIDE OPERATOR) Only the most recent of3 resultswithin the time period is included. Narrative 02/21/2023 6:40 PM MULTIPLE SLIDE OPERATOR Ordered by an unspecified provider. Scanned Document CARDIAC SERVICES ORD ERABLES * PATHOLOGY TISSUE EXAM (STL) (02/17/2023 12:54 PM MULTIPLE SLIDE OPERATOR) Only the most recent of3 resultswithin the time period is included. Case Report Surgical Pathology Report Case: [id number] Authorizing Provider: Anastasiia Goldsmith MD Collected: 02/17/2023 12:54 PM Ordering Location: [address] MED[facility] Received: 02/17/2023 01:50 PM Pathologist: Francisco Stratton MD Specimen: Gallbladder, GALLBLADDER 02/21/2023 4:14 PM MULTIPLE SLIDE OPERATOR [facility] Final Diagnosis Gallbladder, cholecystectomy: - Chronic active cholecystitis with adenomyosis - Cholelithiasis 02/21/2023 4:14 PM MULTIPLE SLIDE OPERATOR [facility] Clinical History Symptomatic cholelithiasis 02/21/2023 4:[address] [facility] Gross Description The specimen is identified with the patient's name and date of . Received in formalin, specimen A, gallbladder is a gallbladder (13.5 x 4.5 x 3.5 cm). The serosa is pink-yellow with mild congestion. The cystic duct lymph node is not identified. Opening shows multiple green-yellow stones (1.2-2 cm in greatest mention and 9 x 7 x 2 cm aggregate). At the gallbladder neck is a polypoid area (1.2 x 0.7 x 0.3 cm) located 0.9 cm from the cystic duct margin, with surrounding 3.5 x 2 cm mildly granular tissue. The remaining gallbladder has green-pink, mildly trabeculated cut surfaces with a wall thickness of 0.1 cm. Manager Wastewater sections submitted as follows: A1 - cystic duct margin, A2-A4 - polyp and granular area entirely, A5 - body and fundus. LJ 02/21/2023 4:[address] [facility] Microscopic Description Microscopic examination substantiates the above diagnosis. 02/21/2023 4:[address] [facility] Pathologist Location at [facility] 02/21/2023 4:[address] [facility] Disclaimer All histochemical and/or immunohistochemical results are interpreted with controls that demonstrate appropriate staining reactions before reporting results. Note on use of immunocytochemistry reagents: This test was developed and its performance characteristic determined by [facility], Department of Laboratory Medicine. It has not been cleared or approved by the U.S. Food and Drug Administration (FDA). The FDA has determined that such clearance or approval is not necessary. The test is used for clinical purpose. It should not be regarded as investigational or for research. This laboratory is certified to perform high complexity testing. The performance characteristics of the IHC/MAURY assays have been validated on formalin-fixed paraffin embedded tissues only. The assays have not been validated on decalcified tissues. Results should be interpreted with caution. 02/21/2023 4:[address] [facility] Embedded Images 02/21/2023 4:[address] [facility] Pathology/Cytolo gy ENTIRE GALLBLADDER / Unknown 02/17/2023 12:54 PM MULTIPLE SLIDE OPERATOR 02/17/2023 1:50 PM MULTIPLE SLIDE OPERATOR Comment:Pre-op diagnosis: Diagnosis unknown [[id number]] Anastasiia Goldsmith MD LAB - PATHOLOGY/CYTO LOGY ORDERABLES [facility] [address] [place] [address] * ETT LINE PERFORMABLE (02/17/2023 12:47 PM MULTIPLE SLIDE OPERATOR) Narrative Patricia Ponce APRN-CRNA - 02/17/2023 12:47 PM MULTIPLE SLIDE OPERATOR Patricia Ponce APRN-CRNA 02/17/2023 12:48 PM Endotracheal Tube Placement: Patient Location: OR. Intubation Event Date/Time: 02/17/2023 12:40 PM Procedure: intubation ([id number]). Procedure Section: Sedation: under general anesthesia. Indications for Airway Management: anesthesia Procedure pretreatments used? No Induction: standard IV Patient Position: sniffing Mask Ventilation: easy. Blade Type: Felder Blade Size: 2 Laryngoscopy View: grade 1 (full cords) Intubation Adjuncts: cricoid pressure and stylet Tube: endotracheal tube Placement: oral Tube type: cuff - inflated Tube Size (MM): 7 Depth of Insertion (CM): 22 Measured From: lips Cuff volume (mL): 4 Cuff Inflated With: air Number of Attempts: 1. Placement Verified By: direct visualization, bilateral breath sounds, chest auscultation and CO2 monitor Tube secured with: adhesive tape. Dentition unchanged? Yes Difficult Airway? No. Procedure Start Time: 02/17/2023 12:40 PM. Staff Section Anesthesia Provider: Patricia Ponce APRN-CRNA, Performed the procedure Additional Comments: Smooth IV induction. DVOI. Positive ETCO2. Positive BBS. Tube secured. Oral cavity unchanged. . Tramaine Mckenzie MD GENERAL ANESTHESIA O RDERABLES * (ABNORMAL) CBC W/O DIFFERENTIAL (02/17/2023 2:57 AM MULTIPLE SLIDE OPERATOR) Only the most recent of2 resultswithin the time period is included. WBC 6.8 4.0 - 10.7 x10E9/L 02/17/2023 4:19 AM MULTIPLE SLIDE OPERATOR [facility] RBC Count 4.06 3.90 - 5.20 x10E12/L 02/17/2023 4:[address] [facility] Hemoglobin 11.6(L) 11.9 - 15.8 g/dL 02/17/2023 4:[address] [facility] Hematocrit 36.1 34.8 - 46.1 % 02/17/2023 4:[address] [facility] MCV 88.9 80.0 - 98.0 fL 02/17/2023 4:[address] [facility] MCH 28.6 26.7 - 33.6 pg 02/17/2023 4:[address] [facility] MCHC 32.1 31.7 - 36.3 g/dL 02/17/2023 4:[address] [facility] RDW-CV 13.4 11.3 - 14.8 % 02/17/2023 4:[address] [facility] Platelet Count 334 150 - 420 x10E9/L 02/17/2023 4:[address] [facility] MPV 10.0 7.8 - 11.4 fL 02/17/2023 4:[address] [facility] Blood BLOOD SPECIMEN / Unknown Lab Venipuncture / Unknown 02/17/2023 2:57 AM MULTIPLE SLIDE OPERATOR 02/17/2023 3:57 AM MULTIPLE SLIDE OPERATOR Corbin Burns MD LAB - HEMATOLOGY ORD ERABLES Performing Organization Address City/[facility]/ZIP Co de Phone Number [facility] [address] [place], [place] [id number] * PHOSPHORUS BLOOD (02/17/2023 2:57 AM MULTIPLE SLIDE OPERATOR) Phosphorus 3.7 2.3 - 4.7 mg/dL 02/17/2023 4:[address] [facility] Blood BLOOD SPECIMEN / Unknown Lab Venipuncture / Unknown 02/17/2023 2:57 AM MULTIPLE SLIDE OPERATOR 02/17/2023 3:58 AM MULTIPLE SLIDE OPERATOR Corbin Burns MD LAB - CHEMISTRY ORDE RABDAVIS [facility] [address] [place] [address] * MAGNESIUM BLOOD (02/17/2023 2:57 AM MULTIPLE SLIDE OPERATOR) Only the most recent of3 resultswithin the time period is included. Magnesium 1.9 1.6 - 2.6 mg/dL 02/17/2023 4:28 AM MULTIPLE SLIDE OPERATOR [facility] Blood BLOOD SPECIMEN / Unknown Lab Venipuncture / Unknown 02/17/2023 2:57 AM MULTIPLE SLIDE OPERATOR 02/17/2023 3:58 AM MULTIPLE SLIDE OPERATOR Corbin Burns MD LAB - CHEMISTRY HAYLIE BAPTISTE Performing Organization Address City/[facility]/ZIP Co de Phone Number [facility] [address] [place] [address] * TROPONIN-I HIGH SENSITIVE REFLEX 1HOUR (02/16/2023 12:19 PM MULTIPLE SLIDE OPERATOR) Pathologist [facility] Troponin I High Sensitive <3 <=14 ng/L 02/16/2023 1:06 PM MULTIPLE SLIDE OPERATOR [facility] Delta Troponin I HS 02/16/2023 1:06 PM MULTIPLE SLIDE OPERATOR [facility] Comment:Delta value intentio rodney not calculated. Baseline to 1 hour specimen collection interval exceeded. Blood BLOOD SPECIMEN / Unknown Venipuncture / Unknown 02/16/2023 12:19 PM MULTIPLE SLIDE OPERATOR 02/16/2023 12:38 PM MULTIPLE SLIDE OPERATOR Cornelio Pedroza PA-C LAB - CHEMISTRY ORD ERIC Performing Organization Address City/[facility]/ZIP Co de Phone Number [facility] [address] [place] [address] * US ABDOMEN LIMITED (02/16/2023 11:31 AM MULTIPLE SLIDE OPERATOR) Anatomical Region Laterality Modality Abdomen Ultrasound 02/16/2023 11:3 3 AM MULTIPLE SLIDE OPERATOR Impressions 02/16/2023 11:36 AM MULTIPLE SLIDE OPERATOR IMPRESSION: 1. Cholelithiasis within the distended and borderline thick-walled gallbladder. If there is concern for acute cholecystitis, hepatobiliary scintigraphy may be helpful. 2. Otherwise normal right upper quadrant ultrasound. > Interpreting Provider: Juan C Moyer MD on 02/16/2023 11:36 AM Narrative 02/16/2023 11:36 AM MULTIPLE SLIDE OPERATOR PROCEDURE: US ABDOMEN LIMITED DATE/TIME OF EXAM: 02/16/2023 11:32 AM CLINICAL INFORMATION: None relevant/not provided if blank. Indication: R10.13: Epigastric pain Additional History: COMPARISON: None. TECHNIQUE: Real-time ultrasound of the upper abdomen with DICOM image capture performed by lead neurodiagnostic technologist. FINDINGS: Pancreas: The visualized portions of the pancreatic head/body are normal. Liver: The liver is normal in size, echotexture, and echogenicity. Vasculature: The imaged portions of the portal and hepatic veins are patent with appropriate directional flow. Gallbladder: Contains several shadowing stones and is mildly distended and borderline thick walled, with wall thickness measuring 3 mm. Sonographic Estrella's sign is reportedly negative, then the patient recently received analgesia. Biliary: The common duct is nondilated. Right kidney: Limited images of the right kidney demonstrate no hydronephrosis. Procedure Note Juan C Moyer MD - 02/16/2023 PROCEDURE: US ABDOMEN LIMITED DATE/TIME OF EXAM: 02/16/2023 11:32 AM CLINICAL INFORMATION: None relevant/not provided if blank. Indication: R10.13: Epigastric pain Additional History: COMPARISON: None. TECHNIQUE: Real-time ultrasound of the upper abdomen with DICOM image capture performed by lead neurodiagnostic technologist. FINDINGS: Pancreas: The visualized portions of the pancreatic head/body are normal. Liver: The liver is normal in size, echotexture, and echogenicity. Vasculature: The imaged portions of the portal and hepatic veins arepatent with appropriate directional flow. Gallbladder: Contains several shadowing stones and is mildly distendedand borderline thick walled, with wall thickness measuring 3 mm. Sonographic Estrella's sign is reportedly negative, then the patient recently received analgesia. Biliary: The common duct is nondilated. Right kidney: Limited images of the right kidney demonstrate no hydronephrosis. IMPRESSION: 1. Cholelithiasis within the distended and borderline thick-walled gallbladder. If there is concern for acute cholecystitis, hepatobiliary scintigraphy may be helpful. 2. Otherwise normal right upper quadrant ultrasound. > Interpreting Provider: Juan C Moyer MD on 02/16/2023 11:36 AM Cornelio JERNIGAN-C US ORDERABLES * XR CHEST 1VW PORTABLE (02/16/2023 10:12 AM MULTIPLE SLIDE OPERATOR) Anatomical Region Laterality Modality Chest Radiographic Romana ging 02/16/2023 10:1 8 AM MULTIPLE SLIDE OPERATOR Impressions 02/16/2023 10:19 AM MULTIPLE SLIDE OPERATOR IMPRESSION: No acute pulmonary disease. > Interpreting Provider: Juan C Moyer MD on 02/16/2023 10:19 AM Narrative 02/16/2023 10:19 AM MULTIPLE SLIDE OPERATOR PROCEDURE: XR CHEST 1VW PORTABLE DATE/TIME OF EXAM: 02/16/2023 10:16 AM CLINICAL INFORMATION: None relevant/not provided if blank. Indication: R07.9: Chest pain, unspecified Additional History: COMPARISON: 05/27/2014 FINDINGS: The lungs are free of focal consolidation, pleural effusion, or pneumothorax. The cardiomediastinal silhouette is within normal limits for technique. Procedure Note Juan C Moyer MD - 02/16/2023 PROCEDURE: XR CHEST 1VW PORTABLE DATE/TIME OF EXAM: 02/16/2023 10:16 AM CLINICAL INFORMATION: None relevant/not provided if blank. Indication: R07.9: Chest pain, unspecified Additional History: COMPARISON: 05/27/2014 FINDINGS: The lungs are free of focal consolidation, pleural effusion, or pneumothorax. The cardiomediastinal silhouette is within normal limitsfor technique. IMPRESSION: No acute pulmonary disease. > Interpreting Provider: Juan C Moyer MD on 02/16/2023 10:19 AM Cornelio Pedroza PA-C DIAGNOSTIC IMAGING ORDERABLES * (ABNORMAL) URINALYSIS REFLEX TO MICROSCOPIC NO CULTURE (02/16/2023 10:00 AM MULTIPLE SLIDE OPERATOR) Only the most recent of2 resultswithin the time period is included. Color UA Colorless(A) Straw, Yellow 02/16/2023 10:15 AM MULTIPLE SLIDE OPERATOR [facility] Clarity UA Clear Clear 02/16/2023 10:15 AM MULTIPLE SLIDE OPERATOR [facility] Glucose UA Negative Negative 02/16/2023 10:15 AM MULTIPLE SLIDE OPERATOR [facility] Bilirubin UA Negative Negative 02/16/2023 10:15 AM MULTIPLE SLIDE OPERATOR [facility] Ketone UA Negative Negative 02/16/2023 10:[address] [facility] Specific [place] UA 1.001(L) 1.005 - 1.030 02/16/2023 10:[address] [facility] Blood UA Negative Negative 02/16/2023 10:[address] [facility] pH UA 6.0 5.0 - 8.0 pH 02/16/2023 10:[address] [facility] Protein UA Negative Negative 02/16/2023 10:[address] [facility] Urobilinogen UA Negative Negative mg/dL 02/16/2023 10:[address] [facility] Nitrite UA Negative Negative 02/16/2023 10:[address] [facility] Leukocyte UA Negative Negative 02/16/2023 10:[address] [facility] Urine Microscopy Urine microscopy not indicated 02/16/2023 10:[address] [facility] Urine URINE SPECIMEN OBTAINED BY CLEAN CATCH PROCEDURE / Unknown Collection / Unknown 02/16/2023 10:00 AM MULTIPLE SLIDE OPERATOR 02/16/2023 10:09 AM [facility] Narrative [facility] - 02/16/2023 10:15 AM MULTIPLE SLIDE OPERATOR Cornelio YOUSSEFC LAB - URINALYSIS OR DERABLES Performing Organization Address City/[facility] Co de Phone Number [facility] [address] [place] [address] * HCG URINE QUALITATIVE (02/16/2023 10:00 AM MULTIPLE SLIDE OPERATOR) hCG Qualitative Urine Negative Negative 02/16/2023 10:[address] [facility] Urine URINE / Unknown Collection / Unknown 02/16/2023 10:00 AM MULTIPLE SLIDE OPERATOR 02/16/2023 10:09 AM [facility] Narrative [facility] - 02/16/2023 10:15 AM MULTIPLE SLIDE OPERATOR Specimens containing human anti-mouse antibodies may exhibit false positive or false negative results. If qualitative interpretation is inconsistent with clinical evaluation, consider confirmation by an alternative hCG method. Cornelio JERNIGAN-C LAB - URINALYSIS OR DERABLES Performing Organization Address City/[facility] Co de Phone Number [facility] [address] [place] [address] * TROPONIN-I HIGH SENSITIVE BASELINE + 1HR (02/16/2023 9:56 AM MULTIPLE SLIDE OPERATOR) [facility] Troponin I High Sensitive <3 <=14 ng/L 02/16/2023 10:27 AM MULTIPLE SLIDE OPERATOR [facility] Blood BLOOD SPECIMEN / Unknown Venipuncture / Unknown 02/16/2023 9:56 AM MULTIPLE SLIDE OPERATOR 02/16/2023 10:03 AM MULTIPLE SLIDE OPERATOR Cornelio Pedroza PA-C LAB - CHEMISTRY ORD ERABLES [facility] [address] [place] [address] * LIPASE BLOOD (02/16/2023 9:56 AM MULTIPLE SLIDE OPERATOR) Only the most recent of5 resultswithin the time period is included. [facility] Lipase 23 <60 U/L 02/16/2023 10:23 AM MULTIPLE SLIDE OPERATOR [facility] Blood BLOOD SPECIMEN / Unknown Venipuncture / Unknown 02/16/2023 9:56 AM MULTIPLE SLIDE OPERATOR 02/16/2023 10:03 AM MULTIPLE SLIDE OPERATOR Cornelio Pedroza PA-C LAB - CHEMISTRY ORD ERABLES Performing Organization Address City/[facility]/ZIP Co de Phone Number [facility] [address] [place] [phone] * EKG 12-LEAD (02/16/2023 9:36 AM MULTIPLE SLIDE OPERATOR) Only the most recent of5 resultswithin the time period is included. Pathologist [facility] Ventricular Rate 71 BPM [facility] Atrial Rate 71 BPM [facility] P-R Interval 132 ms [facility] QRS Duration ms 72 ms [facility] Q-T Interval ms 416 ms [facility] QTC Calculation (Bezet) 452 ms [facility] Calculated P [place] 54 degrees [facility] Calculated R [place] 53 degrees [facility] Calculated T [place] -7 degrees [facility] Interpretation EKG NORMAL SINUS RHYTHM NONSPECIFIC ST AND T WAVE ABNORMALITY ABNORMAL ECG Confirmed by MD Lyndon, Jacques ([id number]) on 02/17/2023 7:44:23 AM [facility] 02/16/2023 9:36 AM MULTIPLE SLIDE OPERATOR 02/17/2023 7:44 AM MULTIPLE SLIDE OPERATOR Cornelio Pedroza PA-C ECG ORDERABLES [facility] * PATHOLOGY SPECIMEN (01/30/2023 3:34 PM MULTIPLE SLIDE OPERATOR) Only the most recent of2 resultswithin the time period is included. Material [facility] INSURANCE BILL Comment: Material submitted: . PART A: cervix - CERVICAL BIOPSY PART B: endocervix - ENDOCERVICAL CURETTAGE Clinician Provided ICD10 [facility] INSURANCE BILL Comment: Clinician provided ICD-10: R87.810 F Diagnosis [facility] INSURANCE BILL Comment: Diagnosis: Part A: CERVICAL BIOPSY: ECTOCERVICAL TISSUE WITH KOILOCYTIC CHANGE; NO DEFINITE DYSPLASIA PRESENT. TRANSFORMATION ZONE NOT REPRESENTED. . Part B: ENDOCERVICAL CURETTAGE: SQUAMOUS METAPLASIA. FRAGMENTS OF BENIGN ENDOCERVICAL GLANDS, MUCUS AND INFLAMMATION. . . COMMENT: Pap smear correlation could not be performed due to the lack of ectocervical epitheluim/transformation zone in the biopsy. [facility] 02/01/2023 1213 Local Signed [facility] INSURANCE BILL Comment: Electronically signed: . Pretty Chaves MD, Pathologist Grossed [facility] INSURANCE BILL Comment: Gross description: . 2 Containers, formalin-filled, labeled with patient identification. Part A: CERVICAL BIOPSY: 1 FRAGMENT(S) OF [place] MUCOID TISSUE MEASURING 0.4 X 0.3 X 0.3 CM. SUBMITTED RECEIVED IN CASSETTE(S) A1. Part B: ENDOCERVICAL CURETTAGE: MULTIPLE FRAGMENT(S) OF SOFT MATERIAL, BLOOD, AND MUCUS MEASURING 3.0 X 1.3 X 0.2 CM IN AGGREGATE. FILTERED AND SUBMITTED IN CASSETTE(S) B1. ANU/ANU 01/31/2023 1007 Local CPT [facility] INSURANCE BILL Comment: CPT . 352939, [id number] Pathology/Cytolog y CERVICAL BIOPSY SPECIMEN / Unknown 01/30/2023 3:34 PM MULTIPLE SLIDE OPERATOR 01/30/2023 Narrative [facility] INSURANCE BILL - 02/01/2023 1:09 PM MULTIPLE SLIDE OPERATOR No. of containers..02 Tissue Resulting Agency Comment Lab Testing performed at: [address] [id number] Ariella Dela Cruz MD LAB - PATHOLOGY/CYT OLOGY ORDERABLES [facility] INSURANCE BILL [address] [place] [address] * HCG URINE QUAL POCT NOTIFICATION (01/25/2023 1:01 PM MULTIPLE SLIDE OPERATOR) Only the most recent of2 resultswithin the time period is included. Comment Notification Label Only - See Separate Report 01/25/2023 1:01 PM MULTIPLE SLIDE OPERATOR [facility] Urine URINE / Unknown 11:49 AM MULTIPLE SLIDE OPERATOR Kuldeep Davis MD LAB - URINALYSIS ORD ERABLES [facility] [address] [place] [address] * HELICOBACTER PYLORI UREASE (STL) (01/25/2023 12:32 PM MULTIPLE SLIDE OPERATOR) Helicobacter pylori Urease Initial Negative Negative 01/26/2023 1:11 PM MULTIPLE SLIDE OPERATOR [facility] Helicobacter pylori Urease Final Negative Negative 01/26/2023 1:11 PM MULTIPLE SLIDE OPERATOR [facility] Microbiology GASTRIC BIOPSY SPECIMEN / Unknown 01/25/2023 12:32 PM MULTIPLE SLIDE OPERATOR 01/25/2023 5:06 PM MULTIPLE SLIDE OPERATOR Comment:Pre-op diagnosis: Gastroesophageal reflux disease, unspecified whether esophagitis present [K21.9] History of esophagitis [Z87.19] Screen for colon cancer [Z12.11] Kuldeep Davis MD LAB - MICROBIOLOGY O RDERABLES [facility] Address City/State/ZIP Co de Phone Number [facility] [address] [phone] * ENDOSCOPY, COLON, SCREENING (01/25/2023 12:17 PM MULTIPLE SLIDE OPERATOR) Report Endoscopy POC _ Patient Name: Smitha Khan Procedure Date: 01/25/2023 12:17 PM Date of : 1975 Admit Type: Outpatient Age: 47 Gender: Female Ethnicity: Not or Race: White Attending MD: Kuldeep Davis MD, [id number] _ Procedure: Colonoscopy Indications: Screening for colorectal malignant neoplasm Providers: Kuldeep Davis MD (Doctor), David Bellamy, RN, Jannette Mcclure, Health Science Instructor Patient Profile: 47F presents for screening colonoscopy avg risk. no prior exams Referring MD: Jacques Farley MD (Referring MD) Medicines: Monitored Anesthesia Care Complications: No immediate complications. _ Estimated Blood Loss: Estimated blood loss was minimal. Procedure: Pre-Anesthesia Assessment: - Prior to the procedure, a History and Physical was performed, and patient medications and allergies were reviewed. The patient's tolerance of previous anesthesia was also reviewed. The risks and benefits of the procedure and the sedation options and risks were discussed with the patient. All questions were answered, and informed consent was obtained. Prior Anticoagulants: The patient has taken no anticoagulant or antiplatelet agents. ASA Grade Assessment: II - A patient with mild systemic disease. After reviewing the risks and benefits, the patient was deemed in satisfactory condition to undergo the procedure. - Prior to the procedure, a History and Physical was performed, and patient medications and allergies were reviewed. The patient's tolerance of previous anesthesia was also reviewed. The risks and benefits of the procedure and the sedation options and risks were discussed with the patient. All questions were answered, and informed consent was obtained. Prior Anticoagulants: The patient has taken no anticoagulant or antiplatelet agents. ASA Grade Assessment: II - A patient with mild systemic disease. After reviewing the risks and benefits, the patient was deemed in satisfactory condition to undergo the procedure. After I obtained informed consent, the scope was passed under direct vision. Throughout the procedure, the patient's blood pressure, pulse, and oxygen saturations were monitored continuously. The Colonoscope was introduced through the anus and advanced to the cecum, identified by appendiceal orifice and ileocecal valve. The colonoscopy was performed without difficulty. The patient tolerated the procedure well. The quality of the bowel preparation was fair. The ileocecal valve, appendiceal orifice, and rectum were photographed. Impression: - Preparation of the colon was fair. - Three 4 to 6 mm polyps in the descending colon, removed with a cold biopsy forceps. Resected and retrieved. - One 10 mm polyp in the transverse colon, removed with a cold snare. Resected and retrieved. Injected. Clips (MR conditional) were placed. - One 10 mm polyp in the transverse colon, removed with a cold snare. Resected and retrieved. Injected. - The examination was otherwise normal on direct and retroflexion views. Findings: The perianal and digital rectal examinations were normal. Three sessile polyps were found in the descending colon. The polyps were 4 to 6 mm in size. These polyps were removed with a cold biopsy forceps. Resection and retrieval were complete. A 10 mm polyp was found in the transverse colon. The polyp was sessile. Area was successfully injected with 1 mL saline for a lift polypectomy. The polyp was removed with a cold snare. Resection and retrieval were complete. To close a defect after polypectomy, two hemostatic clips were successfully placed (MR conditional). There was no bleeding during, or at the end, of the procedure. A 10 mm polyp was found in the transverse colon. The polyp was sessile. Area was successfully injected with 2 mL saline for a lift polypectomy. The polyp was removed with a cold snare. Resection and retrieval were complete. The exam was otherwise without abnormality on direct and retroflexion views. _ Recommendation: - Patient has a contact number available for emergencies. The signs and symptoms of potential delayed complications were discussed with the patient. Return to normal activities tomorrow. Written discharge instructions were provided to the patient. - Resume previous diet. - Await pathology results. - No aspirin, ibuprofen, naproxen, or other non-steroidal anti-inflammatory drugs for 2 weeks after polyp removal. - avoid MRI for 3-6 months - Repeat colonoscopy in 3 years for surveillance based on pathology results. Procedure Code(s): --- Professional --- 91710, Colonoscopy, flexible; with removal of tumor(s), polyp(s), or other lesion(s) by snare technique 52919, 59, Colonoscopy, flexible; with biopsy, single or multiple 09416, Colonoscopy, flexible; with directed submucosal injection(s), any substance --- Technical --- 52901, Colonoscopy, flexible; with removal of tumor(s), polyp(s), or other lesion(s) by snare technique 00296, 59, Colonoscopy, flexible; with biopsy, single or multiple 74355, Colonoscopy, flexible; with directed submucosal injection(s), any substance Diagnosis Code(s): --- Professional --- Z12.11, Encounter for screening for malignant neoplasm of colon D12.4, Benign neoplasm of descending colon D12.3, Benign neoplasm of transverse colon (hepatic flexure or splenic flexure) --- Technical --- Z12.11, Encounter for screening for malignant neoplasm of colon D12.4, Benign neoplasm of descending colon D12.3, Benign neoplasm of transverse colon (hepatic flexure or splenic flexure) CPT copyright 2020 [employer]. All rights reserved. The codes documented in this report are preliminary and upon patient information coordinator review may be revised to meet current compliance requirements. Kuldeep Davis MD 01/25/2023 1:05:03 PM This report has been signed electronically. Number of Addenda: 0 Note Initiated On: 01/25/2023 12:17 PM [facility] 01/25/2023 12:1 7 PM MULTIPLE SLIDE OPERATOR Narrative Procedure Note Kuldeep Davis MD - 01/25/2023 1:05 PM CST Colonoscopy 5 polyps/adenomas resected, larger transverse colon lesion clipped x 2 Brief MRI/nsaid avoidance Rpt 3 yrs pending path See EGD from today D/w smitha Kuldeep Davis MD GI PROCEDURE ORDERAB LES [facility] * EGD (01/25/2023 12:16 PM MULTIPLE SLIDE OPERATOR) Report Endoscopy POC _ Patient Name: Smitha Khan Procedure Date: 01/25/2023 12:16 PM Date of : 1975 Admit Type: Outpatient Age: 47 Gender: Female Ethnicity: Not or Race: White Attending MD: Kuldeep Davis MD, [id number] _ Procedure: Upper GI endoscopy Indications: Epigastric abdominal pain Providers: Kuldeep Davis MD (Doctor), David Bellamy RN, Jannette Mcclure, Health Science Instructor Patient Profile: 47F presents for eval of postprandial pain Referring MD: Jacques Farley MD (Referring MD) Medicines: Monitored Anesthesia Care Complications: No immediate complications. _ Estimated Blood Loss: Estimated blood loss was minimal. Procedure: Pre-Anesthesia Assessment: - Prior to the procedure, a History and Physical was performed, and patient medications and allergies were reviewed. The patient's tolerance of previous anesthesia was also reviewed. The risks and benefits of the procedure and the sedation options and risks were discussed with the patient. All questions were answered, and informed consent was obtained. Prior Anticoagulants: The patient has taken no anticoagulant or antiplatelet agents. ASA Grade Assessment: II - A patient with mild systemic disease. After reviewing the risks and benefits, the patient was deemed in satisfactory condition to undergo the procedure. After obtaining informed consent, the endoscope was passed under direct vision. Throughout the procedure, the patient's blood pressure, pulse, and oxygen saturations were monitored continuously. The Endoscope was introduced through the mouth, and advanced to the second part of duodenum. The upper GI endoscopy was accomplished without difficulty. The patient tolerated the procedure well. Impression: - Normal esophagus. - Normal stomach. Biopsied. - Normal examined duodenum. Findings: The examined esophagus was normal. The entire examined stomach was normal. Biopsies were taken with a cold forceps for Helicobacter pylori testing using CLOtest. The examined duodenum was normal. _ Recommendation: - Patient has a contact number available for emergencies. The signs and symptoms of potential delayed complications were discussed with the patient. Return to normal activities tomorrow. Written discharge instructions were provided to the patient. - High fiber diet and low fat diet. - Await pathology results. - consider HIDA - proceed to colonoscopy Procedure Code(s): --- Professional --- 21466, Esophagogastroduo denoscopy, flexible, transoral; with biopsy, single or multiple --- Technical --- 36046, Esophagogastroduo denoscopy, flexible, transoral; with biopsy, single or multiple Diagnosis Code(s): --- Professional --- R10.13, Epigastric pain --- Technical --- R10.13, Epigastric pain CPT copyright 2020 [employer]. All rights reserved. The codes documented in this report are preliminary and upon patient information coordinator review may be revised to meet current compliance requirements. Kuldeep Davis MD 01/25/2023 12:35:24 PM This report has been signed electronically. Number of Addenda: 0 Note Initiated On: 01/25/2023 12:16 PM [facility] 01/25/2023 12:1 6 PM MULTIPLE SLIDE OPERATOR Narrative Procedure Note Kuldeep Davis MD - 01/25/2023 12:36 PM CST Normal EGD s/p gastric bx Await path, will consider HIDA if neg Kuldeep Davis MD GI PROCEDURE ORDERAB LES [facility] * HCG URINE QUALITATIVE - POCT (IP) INTERFACED (01/25/2023 11:52 AM MULTIPLE SLIDE OPERATOR) Only the most recent of2 resultswithin the time period is included. HCG Qual Urine Negative Negative 01/25/2023 11:58 AM MULTIPLE SLIDE OPERATOR [facility] Urine URINE / Unknown 01/25/2023 1 1:52 AM MULTIPLE SLIDE OPERATOR 01/25/2023 11:58 AM MULTIPLE SLIDE OPERATOR Kuldeep Davis MD LAB - POINT OF CARE ORDERABLES [facility] [address] [place] [address] * (ABNORMAL) PAP IG LB+HPV APTIMA (01/16/2023 4:08 PM MULTIPLE SLIDE OPERATOR) Diagnosis [facility] ACCOUNT BILL Comment: NEGATIVE FOR INTRAEPITHELIAL LESION OR MALIGNANCY. REACTIVE CELLULAR CHANGES AND/OR REPAIR ARE PRESENT. Specimen Adequacy [facility] ACCOUNT BILL Comment:Satisfactory for indio luation. No endocervical component is identified. Clinician Provided ICD10 [facility] ACCOUNT BILL Comment: Z01.419 L30.4 Performed by [facility] ACCOUNT BILL Comment:Kayla swenson, Aviation Technician Aircraft (ASCP) Electronically Signed by [facility] ACCOUNT BILL Comment:Jose Cardona MD, [place] thologist Comment . [facility] ACCOUNT BILL Note [facility] ACCOUNT BILL Comment: The Pap smear is a screening test designed to aid in the detection of premalignant and malignant conditions of the uterine cervix. It is not a diagnostic procedure and should not be used as the sole means of detecting cervical cancer. Both false-positive and false-negative reports do occur. . IGLBP CPT Code Automation NOT AVAILABLE [facility] ACCOUNT BILL Comment: The Thin Prep(R) Director Of Reservations was unable to read this specimen. Therefore a manual review was performed. Result cannot be obtained for this observation. Human papillomavirus Aptima Positive(A) Negative [facility] ACCOUNT BILL Comment: This nucleic acid amplification test detects fourteen high-risk HPV types (16,18,31,33,35,39,45,51,52,56,58,59,66,68) without differentiation. Pathology/Cytolog y PART OF UTERINE CERVIX / Unknown 01/16/2023 4:08 PM MULTIPLE SLIDE OPERATOR 01/17/2023 Narrative [facility] ACCOUNT BILL - 01/19/2023 1:09 PM MULTIPLE SLIDE OPERATOR No. of containers..01 ThinPrep Vial Resulting Agency Comment Lab Testing performed at: [address] Francie ARTEAGA [phone] Ariella Dela Cruz MD LAB - PATHOLOGY/CYT OLOGY ORDERABLES [facility] ACCOUNT BILL [address] [place] [address] * (ABNORMAL) PAP IG LB + HPV HR (11/25/2019 4:40 PM CDT) Only the most recent of4 resultswithin the time period is included. Diagnosis (A) [facility] ACCOUNT BILL Comment: EPITHELIAL CELL ABNORMALITY. LOW GRADE SQUAMOUS INTRAEPITHELIAL LESION (LSIL). PREDOMINANCE OF COCCOBACILLI CONSISTENT WITH SHIFT IN VAGINAL ARIEL IS PRESENT. Specimen Adequacy [facility] ACCOUNT BILL Comment: Satisfactory for evaluation. Endocervical and/or squamous metaplastic cells (endocervical component) are present. Clinician Provided ICD10 [facility] ACCOUNT BILL Comment:R87.612 Performed by [facility] ACCOUNT BILL Comment:Trudi Murphy, Aviation Technician Aircraft (ASCP) Electronically Signed by [facility] ACCOUNT BILL Comment:Mele Truong MD, Patho logist Comment . [facility] ACCOUNT BILL Pathologist Provided ICD10 [facility] ACCOUNT BILL Comment:R87.612, R87.5 Note [facility] ACCOUNT BILL Comment: The Pap smear is a screening test designed to aid in the detection of premalignant and malignant conditions of the uterine cervix. It is not a diagnostic procedure and should not be used as the sole means of detecting cervical cancer. Both false-positive and false-negative reports do occur. . IGLBP CPT Code Automation [facility] ACCOUNT BILL Comment: This liquid based ThinPrep(R) pap test was screened with the use of an image guided system. Human papillomavirus High Risk Positive( A) Negative [facility] ACCOUNT BILL Comment: This nucleic acid amplification high-risk HPV test detects thirteen high-risk types (16,18,31,33,35,39,45,51,52,56,58,59,68) without differentiation. Pathology/Cytolog y PART OF UTERINE CERVIX / Unknown 11/25/2019 4:40 PM CDT 11/26/2019 Narrative [facility] ACCOUNT BILL - 11/29/2019 7:07 PM CDT Source.............Cervix No. of containers..01 ThinPrep Vial Resulting Agency Comment Lab Testing performed at: [facility] [address] [phone] Ariella Dela Cruz MD LAB - PATHOLOGY/CYT OLOGY ORDERABLES [facility] ACCOUNT BILL [address] [place] [address] * (ABNORMAL) RENAL FUNCTION PANEL (07/10/2019 7:44 AM CDT) Glucose 110(H) 70 - 105 mg/dL 07/10/2019 8:40 AM CDT [facility] Sodium 136 136 - 145 mmol/L 07/10/2019 8:40 AM CDT [facility] Potassium 3.5 3.5 - 5.1 mmol/L 07/10/2019 8:40 AM CDT [facility] Chloride 102 98 - 107 mmol/L 07/10/2019 8:40 AM CDT [facility] CO2 24 23 - 31 mmol/L 07/10/2019 8:40 AM CDT [facility] Calcium 9.4 8.4 - 10.4 mg/dL 07/10/2019 8:40 AM CDT [facility] Anion Gap 10 8 - 16 mmol/L 07/10/2019 8:40 AM CDT [facility] BUN 4(L) 7 - 18.7 mg/dL 07/10/2019 8:40 AM CDT [facility] Creatinine 0.67 0.57 - 1.11 mg/dL 07/10/2019 8:40 AM CDT [facility] Albumin 4.5 3.5 - 5.2 gm/dL 07/10/2019 8:40 AM CDT [facility] Phosphorus 2.4 2.3 - 4.7 mg/dL 07/10/2019 8:40 AM CDT [facility] eGFR by MDRD >60 >60 mL/min/1.7 3m2 07/10/2019 8:40 AM CDT [facility] eGFR by MDRD >60 >60 mL/min/1.7 3m2 07/10/2019 8:40 AM CDT [facility] Blood BLOOD SPECIMEN / Unknown Lab Venipuncture / Unknown 07/10/2019 7:44 AM CDT 07/10/2019 8:14 AM CDT Jaron Tony MD LAB - CHEMISTRY PROVOMarine BAPTISTE Performing Organization Address City/[facility]/ZIP Co de Phone Number [facility] [address] [place] [address] * CALCIUM IONIZED BLOOD (07/10/2019 7:44 AM CDT) Calcium Ionized 1.19 1.12 - 1.32 mmol/L 07/10/2019 8:31 AM CDT [facility] pH 7.36 7.35 - 7.45 pH 07/10/2019 8:31 AM CDT [facility] Blood BLOOD SPECIMEN / Unknown Lab Venipuncture / Unknown 07/10/2019 7:44 AM CDT 07/10/2019 8:14 AM CDT Jaron Tony MD LAB - CHEMISTRY HAYLIE BAPTISTE Performing Organization Address City/[facility] Co de Phone Number [facility] [address] [place] [address] * (ABNORMAL) BASIC METABOLIC PANEL (CALCIUM TOTAL) (07/09/2019 11:13 PM CDT) Only the most recent of4 resultswithin the time period is included. Glucose 66(L) 70 - 105 mg/dL 07/09/2019 11:42 PM CDT [facility] Sodium 140 136 - 145 mmol/L 07/09/2019 11:42 PM CDT [facility] Potassium 2.3(LL) 3.5 - 5.1 mmol/L 07/09/2019 11:42 PM CDT [facility] Chloride 118(H) 98 - 107 mmol/L 07/09/2019 11:42 PM CDT [facility] CO2 14(L) 23 - 31 mmol/L 07/09/2019 11:42 PM CDT [facility] Calcium 5.6(LL) 8.4 - 10.4 mg/dL 07/09/2019 11:42 PM CDT [facility] Anion Gap 8 8 - 16 mmol/L 07/09/2019 11:42 PM CDT [facility] BUN 3(L) 7 - 18.7 mg/dL 07/09/2019 11:42 PM CDT [facility] Creatinine 0.42(L) 0.57 - 1.11 mg/dL 07/09/2019 11:42 PM CDT [facility] eGFR by MDRD >60 >60 mL/min/1.7 3m2 07/09/2019 11:42 PM CDT [facility] eGFR by MDRD >60 >60 mL/min/1.7 3m2 07/09/2019 11:42 PM CDT [facility] Blood BLOOD SPECIMEN / Unknown Venipuncture / Unknown 07/09/2019 11:13 PM CDT 07/09/2019 11:21 PM CDT Екатерина Monk MD LAB - CHEMISTRY HAYLIE [facility] Organization Address City/State/[facility] Co de Phone Number [facility] [address] [place] [address] * URINE MICROSCOPIC ONLY REFLEX TO CULTURE (07/09/2019 10:50 PM CDT) Reflex Status Culture to follow 07/09/2019 11:23 PM CDT [facility] RBC UA 0-2 None Seen, 0-2, 3-5 # /hpf 07/09/2019 11:23 PM CDT [facility] WBC UA 0-5 None Seen, 0-5 # /hpf 07/09/2019 11:23 PM CDT [facility] Bacteria UA None Seen None Seen 07/09/2019 11:23 PM CDT [facility] Squamous Epithelial Cells 0-2 None Seen, 0-2, 3-5 /hpf 07/09/2019 11:23 PM CDT [facility] Urine URINE SPECIMEN OBTAINED BY CLEAN CATCH PROCEDURE / Unknown Collection / Unknown 07/09/2019 10:50 PM CDT 07/09/2019 10:55 PM CDT Narrative [facility] - 07/09/2019 11:23 PM CDT Monisha Sood SEAT TRIMMER-OIL FIELD EQUIPMENT MECHANIC SUPERVISOR LAB - URINALYSI S ORDERABLES Performing Organization Address [facility]/ZIP Co de Phone Number [facility] [address] [place] [address] * (ABNORMAL) URINALYSIS REFLEX MICROSCOPIC REFLEX CULTURE (07/09/2019 10:50 PM CDT) Only the most recent of6 resultswithin the time period is included. Color UA Straw Straw, Yellow 07/09/2019 10:59 PM CDT [facility] Clarity UA Clear Clear 07/09/2019 10:59 PM CDT [facility] Glucose UA Negative Negative 07/09/2019 10:59 PM CDT [facility] Bilirubin UA Negative Negative 07/09/2019 10:59 PM CDT [facility] Ketone UA Negative Negative 07/09/2019 10:59 PM CDT [facility] Specific [place] UA 1.002(L) 1.005 - 1.030 07/09/2019 10:59 PM CDT [facility] Blood UA Negative Negative 07/09/2019 10:59 PM CDT [facility] pH UA 7.0 5.0 - 8.0 pH 07/09/2019 10:59 PM CDT [facility] Protein UA Negative Negative 07/09/2019 10:59 PM CDT [facility] Urobilinogen UA Negative Negative mg/dL 07/09/2019 10:59 PM CDT [facility] Nitrite UA Negative Negative 07/09/2019 10:59 PM CDT [facility] Leukocyte UA Trace(A) Negative 07/09/2019 10:59 PM CDT [facility] Urine Microscopy Urine microscopy to follow 07/09/2019 10:59 PM CDT [facility] Reflex Status Culture to follow 07/09/2019 10:59 PM CDT [facility] Urine URINE SPECIMEN OBTAINED BY CLEAN CATCH PROCEDURE / Unknown Collection / Unknown 07/09/2019 10:50 PM CDT 07/09/2019 10:55 PM CDT Narrative [facility] - 07/09/2019 10:59 PM CDT Monisha Sood SEAT TRIMMER-OIL FIELD EQUIPMENT MECHANIC SUPERVISOR LAB - URINALYSI S ORDERABLES Performing Organization Address [facility]/ZIP Co de Phone Number [facility] [address] [place] [address] * CULTURE URINE (07/09/2019 10:50 PM CDT) Only the most recent of2 resultswithin the time period is included. Culture Urine 10,000-50,000 CFU/mL urogenital ariel DOMINIC 07/11/2019 7:12 AM CDT [facility] Urine URINE SPECIMEN OBTAINED BY CLEAN CATCH PROCEDURE / Unknown Collection / Unknown 07/09/2019 10:50 PM CDT 07/09/2019 10:55 PM CDT Monisha Sood SEAT TRIMMER-OIL FIELD EQUIPMENT MECHANIC SUPERVISOR LAB - MICROBIOL OGY ORDERABLES Performing Organization Address City/[facility]/ZIP Co de Phone Number [facility] [address] [place] [address], [facility] [phone] * HCG BETA BLOOD QUANTITATIVE (07/09/2019 8:48 PM CDT) Pathologist [facility] hCG Quantitative <1.20 mIU/mL 07/09/19 20 10:04 PM CDT [facility] Blood BLOOD SPECIMEN / Unknown Venipuncture / Unknown 07/09/2019 8:48 PM CDT 07/09/2019 8:48 PM CDT Narrative [facility] - 07/09/2019 10:04 PM CDT hCG Reference Range, mIU/mL: Males 0-2.0 Non Females 0-6.0 Perimenopausal Females ages 41-55* 0-7.7 Postmenopausal Females age >55* 0-14 Females, Weeks after Last Menstrual Period 0.2-1 week 5-50 1 - 2 weeks 50-500 2 - 3 weeks 100-5000 3 - 4 weeks 500-10,000 4 - 5 weeks 1000-50,000 5 - 6 weeks 10,000-100,000 6 - 8 weeks 15,000-200,000 2 - 3 months 10,000-100,000 Trophoblastic Disease >100,000 *In higher than expected hCG in females > age 40, a serum FSH >20 IU/L makes unlikely. Екатерина Monk MD LAB - CHEMISTRY HAYLIE BAPTISTE [facility] [address] [place] [address] * US TRANSVAGINAL NON OB (05/10/2019 9:26 AM CDT) Anatomical Region Laterality Modality Abdomen Ultrasound Narrative 05/10/2019 9:26 AM CDT Ariella Dela Cruz MD 05/10/2019 9:43 AM [facility]OSPITAL[facility] AIDE KAYLA EXTENSION SERVICE SPECIALIST PELVIC ULTRASOUND Pt. Name: Smitha Khan : 1975 Exam Date: 05/10/2019 LMP: No LMP recorded. (Menstrual status: Continuous Control). BMI: 37.69 kg/m2 Referring Physician: Rylan Dela Cruz Reason for Scan: Missing IUD string Transabdominal: No Transvaginal: Yes Uterine orientation: Normal Uterine measurements: Length 9.59 cm. Width 5.71 cm. Height 4.54 cm. Volume 130.169 cc Endometrial thickness: 3.85 mm/ Midline IUD visualized Left Ovary: Length 3.00 cm. Width 3.15 cm. Height 2.15 cm. Volume 10.638 cc Right Ovary: Surg. Absent Cul de Sac: Negative for free fluid CPT: 29763 Physician Interpretation: The uterus is seen and is anteverted normal in size and shape. The EC is seen and is normal in thickness. There is an IUD seen in the EC and it is in proper position in the fundus of the uterus. The strings appear to be at the level of the internal os. The left ovary is seen and is normal in size and appearance. The right ovary is not seen consistent with her history of surgical removal. There is no free fluid present in the pelvis. Pie Crust Mixer: Mahnaz Emery RDMS, RT(R) Images will be scanned into the record. Interpreting Physician: Rylan Dela Cruz Procedure Note Mahnaz Emery - 05/10/2019 9:26 AM CDT [facility] HOSPITAL[facility] AIDE KAYLA EXTENSION SERVICE SPECIALIST PELVIC ULTRASOUND Pt. Name: Smitha Khan : 1975 Exam Date: 05/10/2019 LMP: No LMP recorded. (Menstrual status: Continuous Control). BMI: 37.69 kg/m2 Referring Physician: Rylan Dela Cruz Reason for Scan: Missing IUD string Transabdominal: No Transvaginal: Yes Uterine orientation: Normal Uterine measurements: Length 9.59 cm. Width 5.71 cm. Height 4.54 cm. Volume 130.169 cc Endometrial thickness: 3.85 mm/ Midline IUD visualized Left Ovary: Length 3.00 cm. Width 3.15 cm. Height 2.15 cm. Volume 10.638 cc Right Ovary: Surg. Absent Cul de Sac: Negative for free fluid CPT: 57763 Physician Interpretation: The uterus is seen and is anteverted normal insize and shape. The EC is seen and is normal in thickness. There is anIUD seen in the EC and it is in proper position in the fundus of theuterus. The strings appear to be at the level of the internal os. The leftovary is seen and is normal in size and appearance. The right ovary is notseen consistent with her history of surgical removal. There is no freefluid present in the pelvis. Pie Crust Mixer: Mahnaz Emery RDMS, RT(R) Images will be scanned into the record. Interpreting Physician: Rylan Dela Cruz Ariella Dela Cruz MD US ORDERABLES * HIV-1 RNA QUALITATIVE RFLXD (05/08/2019 1:10 PM CDT) HIV-1 RNA Qualitative Negative Negative [facility] ACCOUNT BILL Comment:Negative for HIV-1 R NA Final Interpretation [facility] ACCOUNT BILL Comment: HIV antibodies were not confirmed and HIV 1 RNA was not detected. No laboratory evidence of HIV 1 infection. Follow-up testing for HIV 2 should be performed if clinically indicated. 05/08/2019 1:10 PM CDT 05/08/2019 Narrative Resulting Agency Comment Lab Testing performed at: [facility] [address] [phone] Ariella Dela Cruz MD LAB - CHEMISTRY ORD ERABLES [facility] ACCOUNT BILL [address] [place] [address] * HIV-1 HIV-2 ANTIBODY W REFLX (05/08/2019 1:10 PM CDT) [facility] HIV-1 Antibody Negative Negative [facility] ACCOUNT BILL HIV-2 Antibody Negative Negative [facility] ACCOUNT BILL Interpretation Negative [facility] ACCOUNT BILL Comment:See RNA Reflex. Blood BLOOD SPECIMEN / Unknown 05/08/2019 1:10 PM CDT 05/08/2019 Narrative Resulting Agency Comment [facility] [address] [facility] [phone] Ariella Dela Cruz MD LAB - SEROLOGY ORDE RABDAVIS [facility] ACCOUNT BILL [address] [place] [address] * RPR (05/08/2019 1:10 PM CDT) Only the most recent of2 resultswithin the time period is included. [facility] RPR Non Reactive Non Reactive [facility] ACCOUNT BILL Blood BLOOD SPECIMEN / Unknown 05/08/2019 1:10 PM CDT 05/08/2019 Narrative Resulting Agency Comment Lab Testing performed at: [facility] [address] [facility] [phone] Ariella Dela Cruz MD LAB - CHEMISTRY ORD ERABLES Performing Organization Address [facility] Co de Phone Number [facility] ACCOUNT BILL [address] [place] [address] * (ABNORMAL) HERPES SIMPLEX 1+2 ANTIBODY IGG/IGM PANEL (05/08/2019 1:10 PM CDT) [facility] Herpes Simplex Virus Antibody IgM I/II Combination Ratio <0.91 0.00 - 0.90 Ratio [facility] ACCOUNT BILL Comment: Negative <0.91 Equivocal 0.91 - 1.09 Positive >1.09 Herpes Simplex Virus I Antibody IgG Type Specific Index >62.20(H) 0.00 - 0.90 index [facility] ACCOUNT BILL Comment: Negative <0.91 Equivocal 0.91 - 1.09 Positive >1.09 Note: Negative indicates no antibodies detected to HSV-1. Equivocal may suggest early infection. If clinically appropriate, retest at later date. Positive indicates antibodies detected to HSV-1. Herpes Simplex Virus 2 Antibody IgG Type Specific <0.91 0.00 - 0.90 index [facility] ACCOUNT BILL Comment: Negative <0.91 Equivocal 0.91 - 1.09 Positive >1.09 Note: Negative indicates no antibodies detected to HSV-2. Equivocal may suggest early infection. If clinically appropriate, retest at later date. Positive indicates antibodies detected to HSV-2. Blood BLOOD SPECIMEN / Unknown 05/08/2019 1:10 PM CDT 05/08/2019 Narrative Resulting Agency Comment Lab Testing performed at: [email or web address] [address] [facility] [phone] Ariella Dela Cruz MD LAB - CHEMISTRY ORD ERABLES [facility] ACCOUNT BILL [address] [place] [address] * HEPATITIS B SURFACE ANTIGEN W RFLX CONFIRMATION (05/08/2019 1:10 PM CDT) Hepatitis B Virus Surface Antigen Negative Negative [facility] ACCOUNT BILL Blood BLOOD SPECIMEN / Unknown 05/08/2019 1:10 PM CDT 05/08/2019 Narrative Resulting Agency Comment Lab Testing performed at: [facility] [place] [phone] Ariella Dela Cruz MD LAB - CHEMISTRY ORD ERABLES [facility] ACCOUNT BILL [address] [place] [address] * HEPATITIS C ANTIBODY (05/08/2019 1:10 PM CDT) Hepatitis C Antibody <0.1 0.0 - 0.9 s/co ratio [facility] ACCOUNT BILL Comment: Negative: < 0.8 Indeterminate: 0.8 - 0.9 Positive: > 0.9 . The CDC recommends that a positive HCV antibody result be followed up with a HCV Nucleic Acid Amplification test (096038). Blood BLOOD SPECIMEN / Unknown 05/08/2019 1:10 PM CDT 05/08/2019 Narrative Resulting Agency Comment Lab Testing performed at: [facility] [facility] [phone] Ariella Dela Cruz MD LAB - CHEMISTRY ORD ERABLES [facility] ACCOUNT BILL [address] [place] [address] * VAGINITIS PLUS (BV CA CT NG TRICH) (05/08/2019 12:29 PM CDT) Atopobium vaginae Moderate - 1 Score [facility] ACCOUNT BILL BVAB 2 Low - 0 Score [facility] ACCOUNT BILL Megashaera Low - 0 Score [facility] ACCOUNT BILL Comment: Calculate total score by adding the 3 individual bacterial vaginosis (BV) marker scores together. Total score is interpreted as follows: Total score 0-1: Indicates the absence of BV. Total score 2: Indeterminate for BV. Additional clinical data should be evaluated to establish a diagnosis. Total score 3-6: Indicates the presence of BV. . This test was developed and its performance characteristics determined by [employer]. It has not been cleared or approved by the Food and Drug Administration. The FDA has determined that such clearance or approval is not necessary. Magi albicans LYNETTE Negative Negative [facility] ACCOUNT BILL Magi glabrata LYNETTE Negative Negative [facility] ACCOUNT BILL Trichomonas vaginalis by LYNETTE Negative Negative [facility] ACCOUNT BILL Chlamydia Trachomatis LYNETTE Negative Negative [facility] ACCOUNT BILL GC LYNETTE Negative Negative [facility] ACCOUNT BILL Microbiology ENTIRE VAGINA / Unknown 05/08/2019 12:29 PM CDT 05/08/2019 Narrative [facility] ACCOUNT BILL - 05/14/2019 8:09 AM CDT Test(s) 818727-Enxuldf albicans, LYNETTE; 308118-Usaolwg glabrata, LYNETTE was developed and its performance characteristics determined by [facility]. It has not been cleared or approved by the Food and Drug Administration. Resulting Agency Comment Lab Testing performed at: [facility] [id number] Ariella Dela Cruz MD LAB - MICROBIOLOGY ORDERABLES [facility] ACCOUNT BILL [address] [place] [address] * (ABNORMAL) URINALYSIS MICROSCOPIC ONLY REFLEXED (04/24/2019 4:40 PM MULTIPLE SLIDE OPERATOR) Only the most recent of2 resultswithin the time period is included. WBC UA 6-10(A) 0 - 5 /hpf [facility] ACCOUNT BILL RBC UA 0-2 0 - 2 /hpf [facility] ACCOUNT BILL Epithelial Cells (non renal) >10(A) 0 - 10 /hpf [facility] ACCOUNT BILL Epithelial Cells (renal) NOT NEEDED [facility] ACCOUNT BILL Comment:Ancillary determined the test is not needed. Casts ua NOT NEEDED [facility] ACCOUNT BILL Comment:Ancillary determined the test is not needed. Casts UA NOT NEEDED [facility] ACCOUNT BILL Comment:Ancillary determined the test is not needed. Crystals UA NOT NEEDED [facility] ACCOUNT BILL Comment:Ancillary determined the test is not needed. Crystals UA NOT NEEDED [facility] ACCOUNT BILL Comment:Ancillary determined the test is not needed. Mucus UA Present Not Estab. /LPF [facility] ACCOUNT BILL Bacteria UA Many(A) None seen/Few [facility] ACCOUNT BILL Yeast UA NOT NEEDED [facility] ACCOUNT BILL Comment:Ancillary determined the test is not needed. Trichomonas UA NOT NEEDED [facility] ACCOUNT BILL Comment:Ancillary determined the test is not needed. Comment Urine NOT NEEDED [facility] ACCOUNT BILL Comment: FASTING Ancillary determined the test is not needed. 04/24/2019 4:40 PM MULTIPLE SLIDE OPERATOR 04/24/2019 Narrative Resulting Agency Comment Lab Testing performed at: [facility] [address] [facility] [phone] Jacques Farley MD LAB - URINALYSIS ORD ERABLES [facility] ACCOUNT BILL [address] [place] [address] * ACETYLCHOLINE RECEPTOR ANTIBODY PANEL (11/10/2017 6:54 PM CDT) Acetylcholine Binding Antibody <0.03 0.00 - 0.24 nmol/L 11/17/2017 5:12 PM CDT [facility] ([facility]) Comment: Negative: 0.00 - 0.24 Borderline: 0.25 - 0.40 Positive: > 0.40 Acetylcholine Blocking Antibody 15 0 - 25 % 11/17/2017 5:12 PM CDT [facility] ([facility]) Comment: Negative: 0 - 25 Borderline: 26 - 30 Positive: >30 Results for this test are for research purposes only by the assay's swing saw operator. The performance characteristics of this product have not been established. Results should not be used as a diagnostic procedure without confirmation of the diagnosis by another medically established diagnostic product or procedure. Acetylcholine Modulating Antibody <12 0 - 20 % 11/17/2017 5:12 PM CDT [facility] ([facility]) Comment: Negative: <21 Equivocal: 21 - 25 Positive: >25 The assay is linear between values of 12 and 64. Those <12 and >64 are reported as such. No single value for ACR-modulating antibody should be used as a sole basis for diagnosis or response to therapy. Blood BLOOD SPECIMEN / Unknown Lab Venipuncture / Unknown 11/10/2017 6:54 PM CDT 11/10/2017 6:53 PM CDT Narrative [facility] ([facility]) - 11/17/2017 5:12 PM CDT Performed at: [address] [place] [phone] Customer Experience Associate: Leighton Bah MD, Phone: [phone] Phyllis Dyer MD LAB - SEROLOGY ORDER MARCELINO Performing Organization Address City/[facility]/ZIP Co de Phone Number [facility] ([facility]) [address] [place] [address] * CK + CKMB PANEL (11/10/2017 6:54 PM CDT) [facility] CK 64 35 - 232 U/L 11/10/2017 7:22 PM CDT [facility] CK-MB <1.0 0.0 - 5.0 ng/mL 11/10/2017 7:22 PM CDT [facility] Blood BLOOD SPECIMEN / Unknown Lab Venipuncture / Unknown 11/10/2017 6:54 PM CDT 11/10/2017 6:53 PM CDT Phyllis Dyer MD LAB - CHEMISTRY HAYLIE BAPTISTE [facility] [address] [place] [address] * LYME DISEASE PCR (11/10/2017 6:53 PM CDT) [facility] Lyme Disease PCR CSF Negative Negative 11/15/2017 3:20 PM CDT [facility] Comment: No B. burgdorferi DNA Detected. A negative PCR result for Borrelia burgdorferi on a blood sample does not eliminate the possibility of Lyme disease. CDC recommends that two-tiered serological testing in conjunction with clinical evaluation be used as the primary method of diagnosis. This test was developed and its performance characteristics determined by [facility]. It has not been cleared or approved by the Food and Drug Administration. The FDA has determined that such clearance or approval is not necessary. Other BLOOD SPECIMEN / Unknown Collection / Unknown 11/10/2017 6:53 PM CDT 11/10/2017 6:53 PM CDT N[facility]ative [facility]) - 11/15/2017 3:20 PM CDT Performed at: [address] [place] [id number] Customer Experience Associate: Leighton Bah MD, Phone: [phone] Phyllis Dyer MD LAB - SEROLOGY ORDER [facility] ([facility]) [address] [place] [address] * (ABNORMAL) ERYTHROCYTE SEDIMENTATION RATE (11/10/2017 6:53 PM CDT) [facility] Erythrocyte Sedimentation Rate Automated 25(H) 0 - 20 MM/HR 11/10/2017 7:06 PM CDT [facility] Blood BLOOD SPECIMEN / Unknown Lab Venipuncture / Unknown 11/10/2017 6:53 PM CDT 11/10/2017 6:53 PM CDT Phyllis Dyer MD LAB - HEMATOLOGY ORD ERABLES [facility] [address] [place] [address] * MRI BRAIN WWO CONTRAST (11/10/2017 11:52 AM CDT) Anatomical Region Laterality Modality Head Magnetic Resonan ce 11/10/2017 12:2 6 PM CDT Impressions 11/10/2017 12:53 PM CDT Negative for hemorrhage, mass, or infarct. Edited by Rupal Reddy on 11/10/2017 12:33 PM Reading Radiologist: Tejinder Mosqueda MD on 11/10/2017 at 12:53 PM Narrative 11/10/2017 12:53 PM CDT MRI BRAIN. HISTORY: Slurred speech. Images are provided using T1 and T2-weighted sequences. Postcontrast enhanced images after 20 cc Dotarem are also reviewed. The diffusion-weighted study shows no evidence for an acute infarct. No intracranial mass or hemorrhage is present. No extracerebral fluid collections are seen. Visible cerebral vessels have normal flow void. No abnormal enhancement was seen after contrast injection. Procedure Note Tejinder Mosqueda MD - 11/10/2017 MRI BRAIN. HISTORY: Slurred speech. Images are provided using T1 and T2-weighted sequences. Postcontrast enhanced images after 20 cc Dotarem are also reviewed. The diffusion-weighted study shows no evidence for an acute infarct. No intracranial mass or hemorrhage is present. No extracerebral fluid collections are seen. Visible cerebral vessels have normal flow void. No abnormal enhancement was seen after contrast injection. IMPRESSION Negative for hemorrhage, mass, or infarct. Edited by Rupal Reddy on 11/10/2017 12:33 PM Reading Radiologist: Tejinder Mosqueda MD on 11/10/2017 at 12:53 PM Wally Brown DO MR ORDERABLES * ECHOCARDIOGRAM 2D WITH DOPPLER (11/10/2017 9:55 AM CDT) 11/10/2017 9:55 AM CDT Narrative [facility] - 11/10/2017 5:35 [place] [address] Transthoracic Echocardiogram 2D, M-mode, Doppler, and Color Doppler Patient: SMITHA KHAN MR number: [id number] Height: 61 in Weight: 199.5 lb BSA: 1.89 m Study date: 10-Nov-2017 : 1975 Age: 42 years Gender: Female Race: Allergies: PENICILLINS, FLUVIRIN, HYDROMORPHONE HCL Pie Crust Mixer: Azul Frazier OCTAVIO Referring Physician: Bev Choi Reading Physician: Ariella Sandhu MD, [facility], [facility] Summary: - Clinical question: - Slurred speech - Left ventricle: - Systolic function was vigorous. Ejection fraction was estimated to be 70 %. - Although no diagnostic regional wall motion abnormality was identified, this possibility cannot be completely excluded on the basis of this study. - Wall thickness was normal. - Right atrium: - A bubble study was done with and without Valsalva. Difficult study but there wer no bubbles seen in the left ventricle during this study. Indications: Slurred speech Procedure: The procedure was performed in the echo lab. This was a routine study. The transthoracic approach was used. The study included complete 2D imaging, M-mode, complete spectral Doppler, and color Doppler. The heart rate was 67 bpm. Systolic blood pressure was 129 mmHg. Diastolic blood pressure was 83 mmHg. This was a technically difficult study. Left ventricle: Size was normal. Systolic function was vigorous. Ejection fraction was estimated to be 70 %. Although no diagnostic regional wall motion abnormality was identified, this possibility cannot be completely excluded on the basis of this study. Wall thickness was normal. Doppler: Left ventricular diastolic function parameters were normal. Aortic valve: Doppler: There was no stenosis. The peak velocity in LVOT cant be higher than that at aortic valve but peak aortic velocity is not consistent with aortic stenosis There was no regurgitation. Aorta: The root exhibited normal size. Mitral valve: Doppler: There was no regurgitation. Left atrium: Size was normal. Right ventricle: The size was normal. Systolic function was normal. Wall thickness was normal. Pulmonic valve: Leaflets exhibited normal thickness, no calcification, and normal cuspal separation. Doppler: There was no regurgitation. Tricuspid valve: Doppler: There was no significant regurgitation. Right atrium: A bubble study was done with and without Valsalva. Difficult study but there wer no bubbles seen in the left ventricle during this study. Size was normal. Systemic veins: IVC: The inferior vena cava was not well visualized. Pericardium: There was no pericardial effusion. The pericardium was normal in appearance. System measurement tables 2D Ao Diam: 3.2 cm LVOT Diam: 2 cm LA Diam: 3.5 cm IVSd: 0.9 cm LVIDd: 4.9 cm LVIDs: 3.7 cm LVPWd: 0.9 cm CW AV VTI: 32.3 cm AV Vmax: 1.4 m/s AV Vmean: 1 m/s AV maxP.5 mmHg AV meanP.2 mmHg PV Vmax: 0.9 m/s PV maxP.2 mmHg MM TAPSE: 2.7 cm PW PETER (VTI): 3.1 cm2 PETER Vmax: 3.6 cm2 LVOT VTI: 30.2 cm LVOT Vmax: 1.5 m/s LVOT Vmean: 1 m/s LVOT maxP.1 mmHg LVOT meanP.6 mmHg MV E/A Ratio: 1 MV PHT: 72.1 ms MVA By PHT: 3.1 cm2 LATERAL E': 0.1 m/s LATERAL E/E': 6.2 SEPTAL E': 0.1 m/s SEPTAL E/E': 8.4 Prepared and signed by Ariella Sandhu MD, GONZALOP, FACC Signed 10-Nov-2017 17:35:45 Procedure Note Ariella Sandhu MD - 11/10/2017 [place] [address] Transthoracic Echocardiogram 2D, M-mode, Doppler, and Color Doppler Patient: SMITHA KHAN MR number: [id number] Height: 61 in Weight: 199.5 lb BSA: 1.89 m Study date: 10-Nov-2017 : 1975 Age: 42 years Gender: Female Race: Allergies: PENICILLINS, FLUVIRIN, HYDROMORPHONE HCL Pie Crust Mixer: Azul Frazier RDCS Referring Physician: Bev Choi Reading Physician: Ariella Sandhu MD, [facility] Summary: - Clinical question: - Slurred speech - Left ventricle: - Systolic function was vigorous. Ejection fraction was estimated to be 70 %. - Although no diagnostic regional wall motion abnormality was identified, this possibility cannot be completely excluded on the basis of this study. - Wall thickness was normal. - Right atrium: - A bubble study was done with and without Valsalva. Difficult study but there wer no bubbles seen in the left ventricle during this study. Indications: Slurred speech Procedure: The procedure was performed in the echo lab. This was a routine study. The transthoracic approach was used. The study included complete 2D imaging, M-mode, complete spectral Doppler, and color Doppler. The heart rate was 67 bpm. Systolic blood pressure was 129 mmHg. Diastolic blood pressure was 83 mmHg. This was a technically difficult study. Left ventricle: Size was normal. Systolic function was vigorous. Ejection fraction was estimated to be 70 %. Although no diagnostic regional wall motion abnormality was identified, this possibility cannot be completely excluded on the basis of this study. Wall thickness was normal. Doppler: Left ventricular diastolic function parameters were normal. Aortic valve: Doppler: There was no stenosis. The peak velocity in LVOT cant be higher than that at aortic valve but peak aortic velocity is not consistent with aortic stenosis There was no regurgitation. Aorta: The root exhibited normal size. Mitral valve: Doppler: There was no regurgitation. Left atrium: Size was normal. Right ventricle: The size was normal. Systolic function was normal. Wall thickness was normal. Pulmonic valve: Leaflets exhibited normal thickness, no calcification, and normal cuspal separation. Doppler: There was no regurgitation. Tricuspid valve: Doppler: There was no significant regurgitation. Right atrium: A bubble study was done with and without Valsalva. Difficult study but there wer no bubbles seen in the left ventricle during this study. Size was normal. Systemic veins: IVC: The inferior vena cava was not well visualized. Pericardium: There was no pericardial effusion. The pericardium was normal in appearance. System measurement tables 2D Ao Diam: 3.2 cm LVOT Diam: 2 cm LA Diam: 3.5 cm IVSd: 0.9 cm LVIDd: 4.9 cm LVIDs: 3.7 cm LVPWd: 0.9 cm CW AV VTI: 32.3 cm AV Vmax: 1.4 m/s AV Vmean: 1 m/s AV maxP.5 mmHg AV meanP.2 mmHg PV Vmax: 0.9 m/s PV maxP.2 mmHg MM TAPSE: 2.7 cm PW PETER (VTI): 3.1 cm2 PETER Vmax: 3.6 cm2 LVOT VTI: 30.2 cm LVOT Vmax: 1.5 m/s LVOT Vmean: 1 m/s LVOT maxP.1 mmHg LVOT meanP.6 mmHg MV E/A Ratio: 1 MV PHT: 72.1 ms MVA By PHT: 3.1 cm2 LATERAL E': 0.1 m/s LATERAL E/E': 6.2 SEPTAL E': 0.1 m/s SEPTAL E/E': 8.4 Prepared and signed by Ariella Sandhu MD, [facility], [facility] Signed 10-Nov-2017 17:35:45 Bev Choi MD ECHO ORDERABLES Performing Organization Address City/State/[facility] Co de Phone Number [facility] [address] [place] [address] * CT ANGIO NECK HEAD W WO CONTRAST (CTA for STROKE) (11/09/2017 3:01 PM CDT) Anatomical Region Laterality Modality Head Computed Tomogra phy 11/09/2017 3:04 PM CDT Impressions 11/09/2017 3:14 PM CDT 1. Widely patent carotid and vertebral arteries. CT angiogram brain: Insignificant calcified plaque is noted in the left precavernous internal carotid artery. The distal right internal carotid artery is widely patent. Both middle cerebral arteries are patent. No stenosis or aneurysm. The anterior cerebral arteries are symmetric and widely patent. The posterior cerebral arteries are patent. Whereas the right posterior communicating artery is widely patent, the left posterior communicating artery is not seen. This is usually an incidental finding. The more distal posterior cerebral artery branches are patent. The distal vertebral arteries are patent and join to form a normal basilar artery. There is no abnormal brain parenchymal enhancement. The major intracranial venous sinuses remain patent. There is mucosal thickening and fluid in both maxillary sinuses. IMPRESSION: 1. Unremarkable intracranial vasculature. 2. Fluid and mucosal thickening in both maxillary sinuses. The pattern suggests acute on chronic sinusitis Reading Radiologist: Gael Abdalla MD on 11/09/2017 at 3:14 PM Narrative 11/09/2017 3:[address] angiogram neck and brain with contrast DATE: 11/09/2017. INDICATION: Slurred speech, facial weakness. TECHNIQUE: Multidetector enhanced CT angiography through the neck and brain with multiplanar and MIP reformations. 100 cc of Isovue-370 intravenously. Comparisons: None CT angiogram neck: The visualized lung apices are clear. The visualized thoracic aorta is unremarkable. The brachiocephalic artery is widely patent. The right common carotid is patent. The right carotid bifurcation as well as the internal and extra carotid arteries are widely patent. The left common carotid is widely patent. The left carotid bifurcation, internal and external carotid arteries are widely patent. Both vertebral arteries are patent and are symmetric in size. The vessels joint to form a normal basilar artery. Upper cervical lymph nodes are mildly enlarged. For example in level 2A right sided node measures 1.3 cm and on the left measures 1.1 cm. The thyroid is normal. The cervical vertebral bodies are normally aligned. Procedure Note Gael Abdalla MD - 11/09/2017 CT angiogram neck and brain with contrast DATE: 11/09/2017. INDICATION: Slurred speech, facial weakness. TECHNIQUE: Multidetector enhanced CT angiography through the neck and brain with multiplanar and MIP reformations. 100 cc of Isovue-370 intravenously. Comparisons: None CT angiogram neck: The visualized lung apices are clear. The visualized thoracic aorta is unremarkable. The brachiocephalic artery is widely patent. The right common carotid is patent. The right carotid bifurcation as well as the internal and extra carotid arteries are widely patent. The left common carotid is widely patent. The left carotid bifurcation, internal and external carotid arteries are widely patent. Both vertebral arteries are patent and are symmetric in size. The vessels joint to form a normal basilar artery. Upper cervical lymph nodes are mildly enlarged. For example in level 2A right sided node measures 1.3 cm and on the left measures 1.1 cm. The thyroid is normal. The cervical vertebral bodies are normally aligned. IMPRESSION 1. Widely patent carotid and vertebral arteries. CT angiogram brain: Insignificant calcified plaque is noted in the left precavernous internal carotid artery. The distal right internal carotid artery is widely patent. Both middle cerebral arteries are patent. No stenosis or aneurysm. The anterior cerebral arteries are symmetric and widely patent. The posterior cerebral arteries are patent. Whereas the right posterior communicating artery is widely patent, the left posterior communicating artery is not seen. This is usually an incidental finding. The more distal posterior cerebral artery branches are patent. The distal vertebral arteries are patent and join to form a normal basilar artery. There is no abnormal brain parenchymal enhancement. The major intracranial venous sinuses remain patent. There is mucosal thickening and fluid in both maxillary sinuses. IMPRESSION: 1. Unremarkable intracranial vasculature. 2. Fluid and mucosal thickening in both maxillary sinuses. The pattern suggests acute on chronic sinusitis Reading Radiologist: Gael Abdalla MD on 11/09/2017 at 3:14 PM Wally Brown DO CT ORDERABLES * CT HEAD NON CONTRAST (11/09/2017 2:29 PM CDT) Anatomical Region Laterality Modality Head Computed Tomogra phy 11/09/2017 3:01 PM CDT Impressions 11/09/2017 3:04 PM CDT 1. Normal brain 2. Maxillary sinus mucosal thickening and fluid. This could indicate acute on chronic sinusitis. Reading Radiologist: Gael Abdalla MD on 11/09/2017 at 3:04 PM Narrative 11/09/2017 3:[address] brain, noncontrast DATE: 11/09/2017. INDICATION: Slurred speech and headache, right facial weakness. TECHNIQUE: Multidetector nonenhanced head CT with reformations. Comparisons: None. FINDINGS: Brain parenchyma has normal density and devine-white differentiation is preserved. There is no extra-axial fluid collection, mass, mass effect, midline shift or hydrocephalus. No CT evidence for acute ischemia, mass or hemorrhage. There is mucosal thickening throughout the maxillary sinuses with layering fluid. The mastoid sinuses and middle ear spaces are clear. Procedure Note Gael Abdalla MD - 11/09/2017 CT brain, noncontrast DATE: 11/09/2017. INDICATION: Slurred speech and headache, right facial weakness. TECHNIQUE: Multidetector nonenhanced head CT with reformations. Comparisons: None. FINDINGS: Brain parenchyma has normal density and devine-white differentiation is preserved. There is no extra-axial fluid collection, mass, mass effect, midline shift or hydrocephalus. No CT evidence for acute ischemia, mass or hemorrhage. There is mucosal thickening throughout the maxillary sinuses with layering fluid. The mastoid sinuses and middle ear spaces are clear. IMPRESSION 1. Normal brain 2. Maxillary sinus mucosal thickening and fluid. This could indicate acute on chronic sinusitis. Reading Radiologist: Gael Abdalla MD on 11/09/2017 at 3:04 PM [address] Brown DO CT ORDERABLES * PT PTT PANEL (11/09/2017 1:47 PM CDT) PT 10.3 9.5 - 11.6 sec 11/09/2017 2:28 PM CDT [facility] INR 1.0 0.9 - 1.1 11/09/2017 2:28 PM CDT [facility] PTT 25.0 21.0 - 32.0 sec 11/09/2017 2:28 PM CDT [facility] Blood BLOOD SPECIMEN / Unknown Venipuncture / Unknown 11/09/2017 1:47 PM CDT 11/09/2017 1:57 PM CDT Narrative [facility] - 11/09/2017 2:28 PM CDT Conventional Warfarin Anticoagulant Therapy: INR Reference Range: 2.0-3.0 Intensive Warfarin Anticoagulant Therapy: INR Reference Range: 2.5-3.5 Heparin Therapeutic Range for PTT: 47.7 - 68.6 seconds. Wally Brown DO LAB - COAGULATION OR DERABLES [facility] [address] [place] [address] * TSH REFLEX FREE T4 (08/21/2017 4:14 PM CDT) TSH 2.47 0.358 - 3.740 ulU/mL [facility] ACCOUNT BILL Blood BLOOD SPECIMEN / Unknown 08/21/2017 4:14 PM CDT 08/21/2017 Narrative Resulting Agency Comment [facility] [address] [facility] [id number] Malu Akhtar MD LAB - CHEMISTRY HAYLIE BAPTISTE [facility] ACCOUNT BILL [address] [place] [address] * US TRANSVAG ONLY (08/11/2016 2:06 PM CDT) Anatomical Region Laterality Modality Ultrasound Narrative 08/11/2016 2:06 PM CDT Mahnaz Emery 08/11/2016 2:06 PM [facility] PELVIC ULTRASOUND Pt. Name: Smitha Khan : 1975 Exam Date: 08/11/2016 LMP: No LMP recorded. Patient is not currently having periods (Reason: Continuous Control). Referring Physician: Rylan Dela Cruz Reason for Scan: Check IUD / ovary Transabdominal: No Transvaginal: Yes Uterine orientation: Normal Uterine measurements: Length 11.20 cm. Width 5.25 cm. Height 5.16 cm. Volume 158.864 cc Endometrial thickness: 6.62 mm. Left Ovary: Length 2.91 cm. Width 2.35 cm. Height 2.62 cm. Volume 9.381 cc Right Ovary: Surgically removed. Cul de Sac: Negative for free fluid Pie Crust Mixer: Mahnaz Emery RDMS, RT(R) Images will be scanned into the record. Interpreting Physician: Rylan Dela Cruz Ariella Dela Cruz MD US ORDERABLES * FL FLUORO UPPER GI TRACT + KUB (07/08/2015 9:48 AM CDT) Anatomical Region Laterality Modality Abdomen Radiographic Romana ging 07/08/2015 4:43 PM CDT Impressions 07/08/2015 4:44 PM CDT No evidence of leak. Gastric distention. Narrative 07/08/2015 4:44 PM CDT Fluoroscopic upper GI with KUB Indication: Morbid obesity, gastric surgery Findings: Multiple spot radiographs of the gastric remnant were obtained following ingestion of oral contrast media. There is no evidence of leak. The stomach is distended. The there is mild delayed emptying into proximal small bowel. Total fluoro time is 44 seconds. 253 images are submitted. Procedure Note Fede Vargas MD - 07/08/2015 Fluoroscopic upper GI with KUB Indication: Morbid obesity, gastric surgery Findings: Multiple spot radiographs of the gastric remnant were obtained following ingestion of oral contrast media. There is no evidence of leak. The stomach is distended. The there is mild delayed emptying into proximal small bowel. Total fluoro time is 44 seconds. 253 images are submitted. IMPRESSION No evidence of leak. Gastric distention. Angel Ortega MD FLUOROSCOPY ORDERABL ES * GLUCOSE - POINT OF CARE (07/07/2015 4:44 PM CDT) Glucose WB/POC 97 70 - 106 mg/dL 07/07/2015 6:48 PM CDT [facility] Blood BLOOD SPECIMEN / Unknown 07/07/2015 4:44 PM CDT 07/07/2015 6:48 PM CDT Angel Ortega MD LAB - POINT OF CARE ORDERABLES Performing Organization Address City/[facility]/ZIP Co de Phone Number [facility] [address] [place] [address] * HCG URINE QUALITATIVE - POINT OF CARE (IP) (07/07/2015 2:18 PM CDT) Only the most recent of5 resultswithin the time period is included. HCG Qual Urine Negative Negative [facility] QC Verified Yes Yes [facility] POC T TESTING Urine specimen (specimen) URINE / Unknown 07/07/2015 2:18 PM CDT Ema Pantoja MD LAB - POINT OF CA RE ORDERABLES Performing Organization Address City/[facility] Co de Phone Number [facility] [phone] [place] [address] * TROPONIN I (07/07/2015 1:58 AM CDT) Only the most recent of3 resultswithin the time period is included. Troponin I <0.015 0.000 - 0.049 ng/mL 07/07/2015 2:29 AM CDT [facility] Blood BLOOD SPECIMEN / Unknown 07/07/2015 1:58 AM CDT 07/07/2015 2:06 AM CDT Narrative [facility] - 07/07/2015 2:29 AM CDT Note: Diagnosis of myocardial infarction requires symptoms of ischemia or EKG changes of ischemia and Troponin I >99th of normal (0.05 ng/mL). Troponin should be drawn on initial assessment and 3-6 hours later as clinically indicated. Any condition resulting in myocardial cell damage can increase cardiac troponin levels. In addition to myocardial infarction, these include but are not limited to congestive heart failure (CHF), arrhythmia, myocarditis, and non-cardiac related causes such as pulmonary embolism, renal failure and sepsis. Sherin Son MD LAB - CHEMISTRY HAYLIE BAPTISTE [facility] [address] [place] [address] * FL FLUORO UGI SERIES (07/02/2015 2:25 PM CDT) Only the most recent of2 resultswithin the time period is included. Anatomical Region Laterality Modality Abdomen Radiographic Romana ging 07/02/2015 2:34 PM CDT Impressions 07/02/2015 2:37 PM CDT Impression:. Gastric band has migrated from its normal 45? angle appears to be more horizontal with a significant gastric pouch above the band which appears to trap a significant amount of the ingested oral contrast for an extended period of time. Narrative 07/02/2015 2:37 PM CDT Limited Upper GI after Gastric Band Placement Indication: Morbid obesity, gastric surgery, gastroesophageal reflux, nausea and vomiting, abdominal pain Findings: Fluoroscopy of the upper abdomen was performed following ingestion of oral contrast media. There is no evidence of leak. The gastric band appears to have moved from its normal 45? angle to a more horizontal position. There is a significant gastric pouch above the band which appears to trap a significant amount of the ingested oral contrast for an extended time. Approximately half of the contrast does pass through the lumen of the gastric band during the examination. Total Fluoro Time = 1.3 minutes, 17 spot fluoroscopic images were obtained Procedure Note Jordan Hannon MD - 07/02/2015 Limited Upper GI after Gastric Band Placement Indication: Morbid obesity, gastric surgery, gastroesophageal reflux, nausea and vomiting, abdominal pain Findings: Fluoroscopy of the upper abdomen was performed following ingestion of oral contrast media. There is no evidence of leak. The gastric band appears to have moved from its normal 45? angle to a more horizontal position. There is a significant gastric pouch above the band which appears to trap a significant amount of the ingested oral contrast for an extended time. Approximately half of the contrast does pass through the lumen of the gastric band during the examination. Total Fluoro Time = 1.3 minutes, 17 spot fluoroscopic images were obtained IMPRESSION Impression:. Gastric band has migrated from its normal 45? angle appears to be more horizontal with a significant gastric pouch above the band which appears to trap a significant amount of the ingested oral contrast for an extended period of time. Angel Ortega MD FLUOROSCOPY ORDERABL ES * CT ABDOMEN AND PELVIS WITH IV CONTRAST (08/18/2014 9:27 PM CDT) Anatomical Region Laterality Modality Abdomen, Pelvis Computed Tomogra phy 08/18/2014 10:1 2 PM CDT Narrative 08/18/2014 10:[address] ABDOMEN WITH CONTRAST CT PELVIS WITH CONTRAST INDICATION: Left upper abdominal pain with nausea and vomiting x2 days. Lap band surgery in August 2009 TECHNIQUE: The CT scan of the abdomen is carried out during and following administration of 80 mL Omnipaque 350 contrast IV. The images of the pelvis were performed with contrast. Sagittal and coronal reformatted images were performed with the CT scanner. FINDINGS: CT Abdomen: No free fluid is seen in the upper abdomen. The patient has a lap band consistent with the clinical information. The oral contrast passes through the proximal stomach into normal caliber small bowel. The liver, spleen, adrenal glands, pancreas, gallbladder and kidneys appear normal in size. The lung bases are clear. CT Pelvis: No free fluid can be seen in the pelvis. Low CT density collection measuring 10 x 20 mm is visible high in the left adnexa. Uterus is not enlarged and contains an IUD. The bladder is smooth in outline but is not filled with the IV contrast material on this limited single phase examination. There are no dilated bowel loops the pelvis. Appendix is incompletely seen on one of the coronal reformatted images and is grossly normal in size. This report was transcribed with a computerized speech recognition system. In an effort to expedite patient care, it has not been adjusted for typographical, grammatical or syntax problems by a trained medical lab scientist. For questions about the report, please contact the Radiology Department. IMPRESSION: No acute findings in the abdomen. The patient has a lap band. If the symptoms are related, further investigation may be helpful. Please see above.. Procedure Note Adolph Coles MD - 08/18/[address] CT [address] WITH CONTRAST CT PELVIS WITH CONTRAST INDICATION: Left upper abdominal pain with nausea and vomiting x2 days. Lap band surgery in August 2009 TECHNIQUE: The CT scan of the abdomen is carried out during and following administration of 80 mL Omnipaque 350 contrast IV. The images of the pelvis were performed with contrast. Sagittal and coronal reformatted images were performed with the CT scanner. FINDINGS: CT Abdomen: No free fluid is seen in the upper abdomen. The patient has a lap band consistent with the clinical information. The oral contrast passes through the proximal stomach into normal caliber small bowel. The liver, spleen, adrenal glands, pancreas, gallbladder and kidneys appear normal in size. The lung bases are clear. CT Pelvis: No free fluid can be seen in the pelvis. Low CT density collection measuring 10 x 20 mm is visible high in the left adnexa. Uterus is not enlarged and contains an IUD. The bladder is smooth in outline but is not filled with the IV contrast material on this limited single phase examination. There are no dilated bowel loops the pelvis. Appendix is incompletely seen on one of the coronal reformatted images and is grossly normal in size. This report was transcribed with a computerized speech recognition system. In an effort to expedite patient care, it has not been adjusted for typographical, grammatical or syntax problems by a trained medical lab scientist. For questions about the report, please contact the Radiology Department. IMPRESSION: No acute findings in the abdomen. The patient has a lap band. If the symptoms are related, further investigation may be helpful. Please see above.. Carlitos Sharma MD CT ORDERABLES * HCG BLOOD QUALITATIVE (08/18/2014 7:12 PM CDT) Only the most recent of2 resultswithin the time period is included. HCG Qual Serum Negative Negative 08/18/2014 7:40 PM CDT [facility] Blood BLOOD SPECIMEN / Unknown 08/18/2014 7:12 PM CDT 08/18/2014 7:19 PM CDT Corbin Moon DO LAB - CHEMISTRY OR DERABLES [facility] [address] [place] [address] * XR CHEST PA AND LATERAL (05/27/2014 10:30 AM CDT) Only the most recent of2 resultswithin the time period is included. Anatomical Region Laterality Modality Chest Radiographic Romana ging 05/27/2014 11:2 0 AM CDT Impressions 05/27/2014 11:21 AM CDT Clear lungs. Narrative 05/27/2014 11:21 AM CDT Chest x-ray 2 views. History: Chest pain. 2 views of the chest are compared to a prior exam of 04/30/2012. Heart size is stable. Lungs are clear. Procedure Note Tejinder Mosqueda MD - 05/27/2014 Chest x-ray 2 views. History: Chest pain. 2 views of the chest are compared to a prior exam of 04/30/2012. Heart size is stable. Lungs are clear. IMPRESSION Clear lungs. lFy Coffey MD DIAGNOSTIC IMAGING O RDERABLES * ENDOSCOPY, COLON, DIAGNOSTIC (08/03/2012 8:10 AM CDT) Report Endoscopy POC _ Patient Name: Smitha Khan Procedure Date: 08/03/2012 8:10 AM Date of : 1975 Admit Type: Outpatient Gender: Female Age: 37 Attending MD: Baljinder Cruz MD _ Procedure: Colonoscopy Indications: Chronic diarrhea Providers: Baljinder Cruz MD (Doctor) Referring MD: Jacques Farley MD (Referring MD) Medicines: Monitored Anesthesia Care Complications: No immediate complications. Estimated blood loss: None. _ Procedure: Pre-Anesthesia Assessment: - Prior to the procedure, a History and Physical was performed, and patient medications and allergies were reviewed. The patient is competent. The risks and benefits of the procedure and the sedation options and risks were discussed with the patient. All questions were answered and informed consent was obtained. Patient identification and proposed procedure were verified by the physician, the nurse and the environmental research scientist in the procedure room. Mental Status Examination: alert and oriented. Airway Examination: normal oropharyngeal airway and neck mobility. Respiratory Examination: clear to auscultation. CV Examination: normal. Prophylactic Antibiotics: The patient does not require prophylactic antibiotics. Prior Anticoagulants: The patient has taken no previous anticoagulant or antiplatelet agents. ASA Grade Assessment: II - A patient with mild systemic disease. After reviewing the risks and benefits, the patient was deemed in satisfactory condition to undergo the procedure. The anesthesia plan was to use monitored anesthesia care (MAC). Immediately prior to administration of medications, the patient was re-assessed for adequacy to receive sedatives. The heart rate, respiratory rate, oxygen saturations, blood pressure, adequacy of pulmonary ventilation, and response to care were monitored throughout the procedure. The physical status of the patient was re-assessed after the procedure. After I obtained informed consent, the scope was passed under direct vision. Throughout the procedure, the patient's blood pressure, pulse, and oxygen saturations were monitored continuously. The scope was introduced through the anus and advanced to the cecum, identified by appendiceal orifice & ileocecal valve. The colonoscopy was performed without difficulty. The patient tolerated the procedure well. The quality of the bowel preparation was excellent. Findings: The digital rectal exam was normal. Pertinent negatives include no palpable rectal lesions. The transverse colon, ascending colon and cecum appeared normal. Biopsies were taken with a cold forceps for histology. Unable to traverse the IC valve due to the angle of the valve. An area of mildly congested mucosa was found in the rectum and in the sigmoid colon. This was biopsied with a cold forceps for histology. _ Impression: - The transverse colon, ascending colon and cecum are normal. This was biopsied. - Congested mucosa in the rectum and in the sigmoid colon. This was biopsied. Recommendation: - Await pathology results. - Return to my office in [address] Baljinder Cruz MD Baljinder Cruz MD 08/03/2012 8:47 AM This report has been signed electronically. Number of Addenda: 0 Note Initiated On: 08/03/2012 8:10 AM [facility] 08/03/2012 8:10 AM CDT Narrative [facility] - 08/03/2012 8:47 AM CDT Procedure Note Baljinder Cruz MD - 08/03/2012 8:47 AM CDT Baljinder Cruz MD GI PROCEDURE ORDERA [facility] [place] [address] * CULTURE STOOL PANEL (04/30/2012 4:00 PM CDT) Salmonella/Shigel la Screen Final report [facility] ACCOUNT BILL Result 1 [facility] ACCOUNT BILL Comment:No Salmonella or Margy gella recovered. Campylobacter Culture Final report [facility] ACCOUNT BILL Result 1 [facility] ACCOUNT BILL Comment:No Campylobacter spe cies isolated. E coli Shiga Toxin EIA Negative Negative [facility] ACCOUNT BILL Stool specimen (specimen) STOOL SPECIMEN / Unknown 04/30/2012 4:00 PM CDT 04/30/2012 6:27 PM CDT Narrative Resulting Agency Comment [facility] [address] [facility] [phone] Jacques Farley MD LAB - MICROBIOLOGY O RDERABLES [facility] ACCOUNT BILL * XR ABD OBSTR SERIES W/PA CHEST (04/30/2012 12:12 AM CDT) Anatomical Region Laterality Modality Abdomen Radiographic Romana ging 04/30/2012 7:54 AM CDT Impressions 04/30/2012 7:58 AM CDT Unremarkable gas pattern. Narrative 04/30/2012 7:58 AM CDT OBSTRUCTION SERIES WITH ONE VIEW CHEST HISTORY: Abdominal pain. Views of the abdomen show an unremarkable gas pattern. Tubing overlies the abdomen. An IUD projects in the pelvis. There is no free intraperitoneal air. A single view of the chest shows a normal heart size with normal vessels. Lungs are clear. Procedure Note Tejinder Mosqueda MD - 04/30/2012 OBSTRUCTION SERIES WITH ONE VIEW CHEST HISTORY: Abdominal pain. Views of the abdomen show an unremarkable gas pattern. Tubing overlies the abdomen. An IUD projects in the pelvis. There is no free intraperitoneal air. A single view of the chest shows a normal heart size with normal vessels. Lungs are clear. IMPRESSION Unremarkable gas pattern. Layla Brown MD DIAGNOSTIC IMAGING O RDERABLES * AMYLASE BLOOD (04/29/2012 9:47 PM CDT) Amylase 42 15 - 115 U/L 04/29/2012 10:09 PM CDT [facility] Blood specimen (specimen) BLOOD SPECIMEN / Unknown 04/29/2012 9:47 PM CDT 04/29/2012 9:49 PM CDT Layla Brown MD LAB - CHEMISTRY [facility] [address] [place] [address] * PO REF LAB-REQUEST PROBLEM (1) (04/28/2012 11:28 AM MULTIPLE SLIDE OPERATOR) Request Problem NOT NEEDED LAB [facility] ACCOUNT BILL Comment: Specimen frozen. Please resubmit at room temperature if clinically indicated. TEST: STOOL CULTURE Ancillary determined the test is not needed 04/28/2012 11:2 8 AM MULTIPLE SLIDE OPERATOR 04/29/2012 3:01 AM CDT Narrative Resulting Agency Comment [facility] [address] [facility] [phone] Jacques Farley MD LAB - CHEMISTRY ORDE RABLES Performing Organization Address City/[facility] Co de Phone Number [facility] ACCOUNT BILL * FECAL LEUKOCYTES (04/28/2012 11:28 AM MULTIPLE SLIDE OPERATOR) White Blood Cells (WBC), Stool Final report [facility] ACCOUNT BILL Comment:Reference Range: Non e Seen Result 1 [facility] ACCOUNT BILL Comment:No white blood cells seen. Stool specimen (specimen) STOOL SPECIMEN / Unknown 04/28/2012 11:28 AM MULTIPLE SLIDE OPERATOR 04/29/2012 3:01 AM CDT Narrative Resulting Agency Comment [facility] [address] [facility] [phone] Jacques Farley MD LAB - BODY FLUID ORD ERABLES Performing Organization Address [facility] de Phone Number [facility] ACCOUNT BILL * CLOSTRIDIUM DIFFICILE TOXIN A+B (04/28/2012 11:28 AM MULTIPLE SLIDE OPERATOR) C difficile Toxin A + B Negative Negative [facility] ACCOUNT BILL Stool specimen (specimen) STOOL SPECIMEN / Unknown 04/28/2012 11:28 AM MULTIPLE SLIDE OPERATOR 04/29/2012 3:01 AM CDT Narrative Resulting Agency Comment [facility] [address] [facility] [phone] Jacques Farley MD LAB - MICROBIOLOGY O RDERABLES Performing Organization Address [facility] Co de Phone Number [facility] ACCOUNT BILL * VITAMIN B12 FOLATE PANEL (04/28/2012 11:24 AM MULTIPLE SLIDE OPERATOR) Vitamin B12 422 211 - 946 pg/mL [facility] ACCOUNT BILL Folate 11.1 >3.0 ng/mL [facility] ACCOUNT BILL Comment: A serum folate concentration of less than 3.1 ng/mL is considered to represent clinical deficiency. Blood specimen (specimen) BLOOD SPECIMEN / Unknown 04/28/2012 11:24 AM MULTIPLE SLIDE OPERATOR 04/28/2012 1:20 PM MULTIPLE SLIDE OPERATOR Narrative Resulting Agency Comment [facility] [address] [facility] [phone] Jacques Farley MD LAB - CHEMISTRY [facility] Address City/State/ZIP Co de Phone Number [facility] ACCOUNT BILL * FL LAP BAND ADJUST VIA PORT (06/21/2011 1:29 PM CDT) Only the most recent of6 resultswithin the time period is included. Anatomical Region Laterality Modality Radiographic Romana ging 06/21/2011 1:37 PM CDT Narrative 06/21/2011 1:37 PM CDT FLUOROSCOPY: Less than 1 hour of fluoroscopy was utilized during a Lap-Band adjustment. 1.25 cc saline was adjusted. No radiologist was present. 1.9 minutes fluoroscopy was utilized. Procedure Note Edita El MD - 06/21/2011 FLUOROSCOPY: Less than 1 hour of fluoroscopy was utilized during a Lap-Band adjustment. 1.25 cc saline was adjusted. No radiologist was present. 1.9 minutes fluoroscopy was utilized. Angel Ortega MD FLUOROSCOPY ORDERABL ES * CYTOLOGY STUDY PANEL (07/21/2009 2:46 PM CDT) Only the most recent of4 resultswithin the time period is included. Result CASE NUMBER [id number] Comment: ORDERING PHYSICIAN ARIELLA DELA CRUZ SPECIMEN TYPE Pelvic Washings-40ml DATE OF PROCEDURE 07/21/2009 SPECIMEN LABELED Pelvic washings PRE-OP DIAGNOSIS Ovary cyst GROSS DESCRIPTION MICROSCOPIC Microscopic examination of the prepared thin prep and cell block from the pelvic washings shows reactive mesothelial cells, histiocytes and other inflammatory cells. Neoplastic infiltrate is not seen. DIAGNOSIS Pelvic washings, cytology - Negative for malignancy Dictated by Mary Bowers M.D. [facility] [id number] Candy Separator Hard REBECCA EASTMAN Electronically Signed By HAVLIOGLU,NECAT MISCELLANEOUS SAMPLES / Unknown 07/21/2009 2:46 PM CDT 07/21/2009 2:46 PM CDT Historical Provider LAB - PATHOLOGY/C YTOLOGY ORDERABLES * GROSS + MICRO EXAM (07/21/2009 2:05 PM CDT) Only the most recent of6 resultswithin the time period is included. Result CASE NUMBER [id number] Comment: ORDERING PHYSICIAN ARIELLA DELA CRUZ SPECIMEN TYPE Ovary with tube-fs DATE OF PROCEDURE 07/21/2009 SPECIMEN LABELED Right tube and ovary, FS PRE-OP DIAGNOSIS Ovarian mass GROSS DESCRIPTION GROSS DESCRIPTION The specimen is received fresh labeled right tube and ovary patient Smitha Khan, and consists of a 5.5 gram, 3.5 x 3 x 2 cm partially disrupted ovary with a portion of fallopian tube. Section shows multiple smooth walled cysts within the ovary. There are a few dark livingston/brown granular appearing areas. A portion of the ovary is submitted for frozen section analysis. The remaining ovarian cut surface is livingston and unremarkable. Sections through the additional submitted tissue shows a portion of a fallopian tube. The lumen is unremarkable. Manager Wastewater sections are submitted as follows FSA1 - frozen section remnant A2 - granular appearing area A3/A4 - additional sections of cystic ovary A5 - possible fallopian tube. FROZEN SECTION DIAGNOSIS BY DR. BOWERS Right ovary, excision, FSA1 -`Benign ovarian tissue with cysts (Dr. Staples 2 05 p.m.) Dictated by DYT MICROSCOPIC Permanent sections confirm the frozen section diagnosis. Sections submitted from the right tube and ovary show follicular cysts and regressing corpus luteum and corpora albicans with foci of calcifications. Malignant neoplastic process is not seen within these sections. Sections of the fallopian tube are unremarkable. There are a few nests of Walthard's rest. DIAGNOSIS Right tube and ovary, right salpingo-oophorectomy - Regressing corpus luteum and corpora albicans with foci of calcification - Follicular cysts Dictated by Mary Bowers M.D. CPT [id number] Candy Separator Hard EDITA FONSECA Electronically Signed By XIN BOWERS MISCELLANEOUS SAMPLES / Unknown 07/21/2009 2:05 PM CDT 07/21/2009 2:05 PM CDT Historical Provider LAB - PATHOLOGY/C YTOLOGY ORDERABLES * TYPE + SCREEN PANEL (07/21/2009 10:35 AM CDT) ABO Rh O POS [facility] Antibody Screen NEG [facility] BLOOD SPECIMEN / Unknown 07/21/2009 10:35 AM CDT 07/21/2009 10:43 AM CDT Ariella Dela Cruz MD LAB - BLOOD BANK OR DERABLES Performing Organization Address [facility] Co de Phone Number [facility] [address] [place] [address] * ZINC BLOOD (06/24/2009 2:35 PM CDT) Zinc 65 60 - 120 mcg/dl [facility] Comment Ref Lab [facility] Comment: Comments and Normal Ranges for Component Zinc(mcg/dl) TEST INFORMATION/ Zinc, Serum Circulating zinc concentrations are dependent on albumin status and are depressed with malnutrition. Zinc may also be lowered with infection, inflammation, stress, oral contraceptives, and . Zinc may be elevated with zinc supplementation or fasting. Elevated zinc concentrations may interfere with copper absorption. BLOOD SPECIMEN / Unknown 06/24/2009 2:35 PM CDT 06/24/2009 3:06 PM CDT Narrative Resulting Agency Comment Performed By [address] [address] Pratik Sandhu MD LAB - CHEMISTRY O RDERABLES Performing Organization Address City/[facility] Co de Phone Number [facility] [address] [place] [address] * VITAMIN B1 (06/24/2009 2:35 PM CDT) Vitamin B1 Whole Blood 13 8 - 30 ug/dl [facility] Comment Ref Lab [facility] Comment: Comments and Normal Ranges for Component Thiamine(ug/dl) INTERPRETIVE DATA/ Vitamin B1, Plasma Total thiamine, measured as thiamine (vitamin B1) and thiamine monophosphate, is reported. However, the biologically active form of the vitamin, thiamine diphosphate (TDP), is best measured in whole blood, and is not found in measurable concentration in plasma. Plasma thiamine concentration reflects recent intake rather than body stores. BLOOD SPECIMEN / Unknown 06/24/2009 2:35 PM CDT 06/24/2009 3:05 PM CDT Narrative Resulting Agency Comment Performed By [address] [address] Pratik Sandhu MD LAB - CHEMISTRY O RDERABLES Performing Organization Address City/[facility] Co de Phone Number [facility] [address] [place] [address] * PTH INTACT (06/24/2009 2:35 PM CDT) PTH Intact 48.8 14 - 72 pg/ml [facility] BLOOD SPECIMEN / Unknown 06/24/2009 2:35 PM CDT 06/24/2009 3:06 PM CDT Narrative Resulting Agency Comment Performed By [address] [address] Pratik Sandhu MD LAB - CHEMISTRY O RDERABLES Performing Organization Address [facility] de Phone Number [facility] [id number] [place] [phone] * FOLATE RBC (06/24/2009 2:35 PM CDT) Folate RBC 393 280 - 791 ng/ml [facility] Hct 39.4 % [facility] BLOOD SPECIMEN WITH EDTA / Unknown 06/24/2009 2:35 PM CDT 06/24/2009 3:05 PM CDT Narrative Resulting Agency Comment Performed By [facility] [address] [place] [address] Pratik Sandhu MD LAB - CHEMISTRY O RDERABLES Performing Organization Address [facility] Co de Phone Number [facility] [id number] [place] [phone] * PT-INR (06/24/2009 2:35 PM CDT) PT 10.1 9.4 - 11.2 seconds [facility] INR 1.0 SEE BELOW [facility] Comment: 0.9-1.1 Normal 2.0-3.0 Conventional 2.5-3.5 Intensive BLOOD SPECIMEN / Unknown 06/24/2009 2:35 PM CDT 06/24/2009 3:05 PM CDT Pratik Sandhu MD LAB - COAGULATION ORDERABLES Performing Organization Address [facility] de Phone Number [facility] [address] [place] [phone] * IRON BLOOD (06/24/2009 2:35 PM CDT) Iron 67 37.0 - 170.0 ug/dl [facility] BLOOD SPECIMEN / Unknown 06/24/2009 2:35 PM CDT 06/24/2009 3:04 PM CDT Pratik Sandhu MD LAB - CHEMISTRY O RDERABLES Performing Organization Address [facility] de Phone Number [facility] [address] [place] [address] * VITAMIN B12 (06/24/2009 2:35 PM CDT) Vitamin B12 360 211 - 911 pg/ml [facility] BLOOD SPECIMEN / Unknown 06/24/2009 2:35 PM CDT 06/24/2009 3:06 PM CDT Narrative Resulting Agency Comment Performed By [address] [address] Pratik Sandhu MD LAB - CHEMISTRY O RDERABLES Performing Organization Address [facility] de Phone Number [facility] [address] [place] [phone] * FERRITIN (06/24/2009 2:35 PM CDT) Ferritin 50.0 10 - 291 ng/ml [facility] BLOOD SPECIMEN / Unknown 06/24/2009 2:35 PM CDT 06/24/2009 3:06 PM CDT Narrative Resulting Agency Comment Performed By [address] [address] Pratik Sandhu MD LAB - CHEMISTRY O RDERABLES [facility] [address] [place] [address] * COMPLETE PFT (06/24/2009 12:00 AM CDT) 06/24/2009 Narrative Procedure Note Ariella Marx MD - 06/24/2009 12:[facility] PULMONARY FUNCTION TEST REPORT PATIENT: SMITHA KHAN MR#: [id number] ADMIT DATE: 06/24/2009 DATE OF PROCEDURE: 06/24/2009 : 1975 PHYSICIAN: Ariella Marx MD 1.Baseline spirometry reveals normal expiratory flows. 2.Flow volume loop has a normal configuration. IMPRESSION: Normal spirometry with no obstructive lung disease. Ariella Marx MD LORRAINE/MedQ #:[id number] Ariella Marx MD RESPIRATORY THERAPY ORDERABLES * POLYSOMNOGRAPHY (03/14/2009) Jacques Farley MD [facility] ORDERAB LES * POLYSOMNOGRAPHY (03/03/2009) Jacques Farley MD SLEEP CENTER ORDERAB LES * LIPID PROFILE W TCHOL/HDL (PO REF LAB) (01/28/2009 3:36 PM MULTIPLE SLIDE OPERATOR) Cholesterol 156 100 - 199 mg/dL [facility] ACCOUNT BILL Triglycerides 72 0 - 149 mg/dL [facility] ACCOUNT BILL HDL Cholesterol 45 >39 mg/dL [facility] ACCOUNT B[facility] Comment: According to ATP-III Guidelines, HDL-C >59 mg/dL is considered a negative risk factor for CHD. VLDL Calculated 14 5 - 40 mg/dL [facility] ACCOUNT BILL LDL Calculated 97 0 - 99 mg/dL [facility] ACCOUNT BILL Cholesterol/HDL Ratio 3.5 0.0 - 4.4 ratio units [facility] ACCOUNT BILL BLOOD SPECIMEN / Unknown 01/28/2009 3:36 PM MULTIPLE SLIDE OPERATOR 01/28/2009 8:37 PM MULTIPLE SLIDE OPERATOR Narrative Resulting Agency Comment [facility] [place] [id number] [facility] [phone] Jacques Farley MD LAB - CHEMISTRY ORDE RABLES [facility] ACCOUNT BILL * (ABNORMAL) HGB HCT PANEL (09/02/2007 11:30 PM CDT) Hemoglobin 10.7(L) 12.0 - 16.0 gm/dl [facility] Hematocrit 32.3(L) 36 - 47 % [facility] 09/02/2007 11:3 0 PM CDT Ariella Dela Cruz MD LAB - HEMATOLOGY OR DERABLES Performing Organization Address City/[facility]/ZIP Co de Phone Number [facility] Care Teams Black And White Printer Operator Relationship Specialty Start Date End Date Jacques Farley MD [address] [facility] [address] [place] [address] PCP - General 10/19/09 Ariella Dela Cruz MD [address] [facility] [address] [place] [phone] Obstetrics and Gynecology 02/24/15 Corbin Gonzalez MD [address] [facility] [address] [place], [place] [id number] Orthopedic Surgery 02/24/15 Antonio Ragsdale Jr., MD [address] [place], [place] [id number] Psychiatry 05/18/20 Cinda Ochoa, SEAT TRIMMER-OIL FIELD EQUIPMENT MECHANIC SUPERVISOR [address] [facility] [address] [place] [address] Nurse Practitioner Sleep Medicine 07/27/23
--- OUTSIDE RECORDS SUMMARY | 2024-04-09 18:40 | XMS_ITS | Clinical Summary ---
Author Organization [facility] Address [address] [place] [address] Care Team Providers Care Bundle Person Name Role Phone Jacques Farley MD Primary Care Provider [phone] Allergies Active Allergy Reactions Criticality Noted Date Comments Adhesive Rash Medium 07/18/2019 Peels patient's skin off. Fluvirin [id number] Swelling,Nausea And Vomiting High 11/01/2012 Hydromorphone Hcl [...] 01/07/2009 Overview (07/25/2023): Disc bulge L5-S1 MRI [facility]. About 2002 per the patient and 2005 per the patient Pain with weight up only PCOS (polycystic ovarian syndrome) 01/07/2009 Overview (07/25/2023): Dr. Mei follows Family History Medical History Relation Name Comments Arthritis Father Family history of arthritis - (Added by TW Conv) Heart disease Father Family history of cardiac disorder - (Added by TW Conv) Hypertension Father Family history of hypertension - (Added by TW Conv) Arthritis Mother Family history of arthritis - (Added by TW Conv) Bleeding Disorder Mother Family his tory of bleeding disorder - (Added by TW Conv) Heart disease Mother Family history of cardiac disorder - (Added by TW Conv) Hypertension Mother Family history of hypertension - (Added by TW Conv) Relation Name Status Comments Father Mother Social History Tobacco Use Types Packs/Day Years Used Date Smoking Tobacco: Every Day Personal Safety Answer Date Recorded Getting School Help Needed Not on file 07/24 Comments Unknown Sex and Gender Information Value Date Recorded Sex Assigned at Not on file Legal Sex Female 10:51 PM FACILITY COORDINATOR Gender Identity Not on file Sexual Orientation Not on file Obstetrics History Plan of Treatment Health Maintenance Due Date Last Done Comments Breast Cancer Screening-Mammogram 1977 Cervical Cancer Screening 1977 Colon Cancer Screening-Colonoscopy 1977 Depression Screening 1977 Hepatitis C Screening 1977 Pneumococcal vaccine <65 (1 of 2 - PCV) 06/11/1983 Regular Well Visit/Exam 18-64 06/11/1995 DTaP/Tdap/Td Vaccine (2 - Td or Tdap) 03/07/2023 03/07/2013 Covid-19 Vaccine (3 - 2023-2 5 season) 2023 09/26/2020, 08/29/2020 Influenza Vaccine (#1) 2023 1, 11/20/2009, 11/20/2008 HPV Vaccines Aged Out No longer eligi ble based on patient's age to complete this topic Insurance [facility] CHOICE OOS Care Teams Bundle Person Relationship Specialty Start Date End Date Jacques Farley MD [address] [address] PCP - General 01/25/17
--- OUTSIDE RECORDS SUMMARY | 2024-04-09 18:40 | XMS_ITS | Clinical Summary ---
Author Organization [facility] Address [address] [place] [address] Care Team Providers Care Special Education Preschool Teacher Name Role Phone Jacques Farley MD Primary Care Provider [phone] Estuardo Mei MD Unavailable [phone] Corbin Gonzalez MD Unavailable [phone] Melyssa Robles MD, Antonio S Unavailable Cinda Ochoa [facility]WN MAINTENANCE [facility] Unavailable [phone] Source Comments [facility],non-owned Affiliates and Associated Physician Practices is amultiple site organization consisting of ambulatory clinics and hospital sitesin [place], [place], [place] and [place]. This disclosure is being madepursuant to the Care Everywhere program and may not contain all information available regarding this patient. Last updated 17.[facility] Allergies Active Allergy Reactions Criticality Noted Date Comments Adhesive Sensitivity Skin Reactions Medium 07/18/2019 Peels patient's skin off. Hydromorphone Hcl Nausea and/or Vomiting Medium 07/17/2009 Fluvirin Swelling,Nausea and/or Vomiting High 11/01/2012 Penicillins Rash Medium 01/07/2009 Viloxazine Hcl Er Nausea and/or Vomiting 09/23/2022 Medications * Be aware that medications may not be up to date on this document. Alwaysverify current medications with the patient. Medication Sig Dispensed Refills Start Date End Date Status levonorgestrel (MIRENA) 20 MCG/DAY IUD 1 (one) device by Intrauterine route once 5-year, replaced 04/2019 Active busPIRone (BUSPAR) 30 MG tablet Take 1 (one) tablet by mouth 2 times daily Active topiramate (TOPAMAX) 100 MG tablet TK 1 T PO HS 11/28/2019 Active clonazePAM (KLONOPIN) 1 MG tablet Take 1 (one) tablet by mouth 3 times daily as needed for Anxiety 10/13/2020 Active ziprasidone (GEODON) 80 MG capsule Take 1 (one) capsule by mouth daily with dinner 07/15/2021 Active vitamin D, ergocalciferol, (Drisdol) 1.25 MG (56358 UT) capsuleIndications :Vitamin D insufficiency Take 1 (one) capsule by mouth every 7 days 12 capsule 1 05/29/2022 Active Additional Information Patient not taking.Reported on 01/03/2024 traZODone (Desyrel) 100 MG tabletIndications: Generalized anxiety disorder,Psychophy siological insomnia TAKE 2 TABLETS BY MOUTH AT BEDTIME NEEDED FOR INSOMNIA OR ANXIETY 07/04/2022 Active Additional Information Patient not taking.Reported on 01/03/2024 Blood Pressure Monitoring (Blood Pressure Digital Soln) KIT 06/20/2023 Active escitalopram (Lexapro) 10 MG tablet Take 1.5 (one and one-half) tablets by mouth once daily 06/08/2023 Active metFORMIN ER 24hr (Glucophage XR) 500 MG tabletIndications: Type 2 Diabetes Mellitus Take 3 (three) tablets by mouth daily with dinner Start 1 tablet after dinner for the first 3 days, then 2 tablets after dinner for 3 days, then 3 tablets daily after dinner. Reasons: Type 2 Diabetes 90 tablet 5 07/05/2023 Active Additional Information Patient not taking.Reported on 01/03/2024 atomoxetine (Strattera) 80 MG capsule Take 1 (one) capsule by mouth every morning 09/28/2023 Active hydrOXYzine HCl (Atarax) 25 MG tablet Take 1 (one) tablet by mouth 2 times daily as needed (itching or anxiety) 09/28/2023 Active losartan (Cozaar) 50 MG tabletIndications: Hypertension Take 1 (one) tablet by mouth once daily Reasons: High Blood Pressure 90 tablet 1 01/03/2024 Active ondansetron, disintegrating, (Zofran ODT) 4 MG tabletIndications: Nausea,Psychogenic vomiting with nausea Take 1 (one) tablet by mouth every 6 hours as needed for Nausea/Vomiting Allow tablet to dissolve on the tongue 20 tablet 01/03/2024 Active omeprazole (PriLOSEC) 40 MG capsuleIndications :Gastroesophageal Reflux Disease Take 1 (one) capsule by mouth once daily Reasons: Gastroesophageal Reflux Disease 90 capsule 5 01/03/2024 Active Active Problems Problem Noted Date Diagnosed Date Nausea 01/03/2024 Psychogenic vomiting with nausea 01/03/2024 Chronic rhinitis 06/22/2023 History of colon polyps 02/04/2023 Overview (02/04/2023): 01/2023 Multiple tubular adenomas. Repeat 3 years. Psychophysiological insomnia 07/04/2022 Vitamin D insufficiency 05/18/2020 [...] apnea) - moderate with hy poxia 04/01/2009 Overview (04/24/2019): CPAP trial past. Not using it. Lumbosacral spondylosis 01/07/2009 Overview (01/07/2009): Disc bulge L5-S1 MRI [facility]. About 2002 per the patient and 2005 per the patient Pain with weight up only PCOS (polycystic ovarian syndrome) 01/07/2009 Overview (01/07/2009): Dr. Mei follows Resolved Problems Problem Noted Date Diagnosed Date Resolved Date Abdominal pain, epigastric 02/16/2023 0 07/05/2023 Symptomatic cholelithiasis 02/16/2023 0 07/05/2023 Suspected sleep apnea 11/08/20222022 Hypokalemia 07/10/2019 07/18/2019 Urinary tract infection without hematuria 04/24/2019 06/27/2019 Coordination abnormal 11/10/20172019 Overview (11/17/2017): Right hand rapid alternating movements not coordinated. Dysarthria with that 10/2017 Slurred speech 11/09/2017 04/24/2019 Nicotine vapor product user 09/01/2017 01/03/2024 Poison mary 06/14/2016 06/26/2016 Costochondral pain 11/01/2012 5 H/O laparoscopic adjustable gastric banding 04/26/2012 07/04/2016 Visual disturbance 01/04/2011 0 Cigarette smoker 02/26/2010 06/20/2017 Elevated cholesterol 01/07/2009 013 Gestational diabetes 01/07/2009 010 GERD (gastroesophageal reflux disease) 01/07/2009 04/26/2012 Moderate episode of recurren t major depressive disorder 01/07/2009 09/23/2022 Morbid obesity 01/07/2009 09/23/2022 Immunizations Name Administration Dates Next Due HEP A/HEP B 08/20/1998,03/23/1998,02/20/1998 INFLUENZA VACCINE 11/15/2010,11/20/2009,11/21/19 09,11/20/2008 TDAP (7yrs+) 01/03/2024,03/07/2013 Family History Medical History Relation Name Comments None Known Brother CAD (Coronary Artery Disease) Father Hypertension Father Hypertension Mother None Known Sister Relation Name Status Comments Brother Alive Father Alive severe stroke a ge 67 Mother Alive Sister Alive Social History Tobacco Use Types Packs/Day Years [...] Comments Blood Pressure 124/82 01/03/2024 2:40 PM BAND INSTRUMENT REPAIRER Pulse 92 01/03/2024 2:40 PM BAND INSTRUMENT REPAIRER Temperature 36.2 C (97.2 F) 01/03/2024 2:40 PM BAND INSTRUMENT REPAIRER Respiratory Rate 18 03/02/2023 11:28 AM BAND INSTRUMENT REPAIRER Oxygen Saturation 98% 01/03/2024 2:40 PM BAND INSTRUMENT REPAIRER Inhaled Oxygen Concentration - - Weight 89.4 kg (197 lb) 01/03/2024 2:40 PM BAND INSTRUMENT REPAIRER Height 152.4 cm (5') 07/27/2023 8:51 AM CDT Body Mass Index 38.47 07/27/2023 8:51 AM CDT Plan of Treatment Upcoming Encounters Date Type Department Care Team (Late st Contact Info) Description 07/16/2024 4:00 PM CDT Video Visit [facility] - Internal Medicine [address] [place] [address] [place] [phone] Jacques Farley MD [address] [place] [phone] 01/07/2025 3:30 PM BAND INSTRUMENT REPAIRER Office Visit [facility] - Internal Medicine [address] [place] [phone] Jacques Farley MD [address] [place] [address] [place] [phone] Health Maintenance Due Date Last Done Comments COLOGUARD (AGES 45-75) - COLON CA SCREENING 1977 CT COLONOGRAPHY - COLON CA SCREENING 1977 FIT - COLON CA SCREENING 1977 FLEX SIG - COLON CA SCREENING 1977 MAMMOGRAM 1977 COVID-19 VACCINE (3 - 2023- season) 2023 09/26/2020, 08/29/2020 PAP with HPV 01/17/2024 01/16/2023, 11/25/2019, 08/26/2019, Additional history exists SCREENING FOR DIABETES 11/28/2026 , 11/29/2023, 02/17/2023, Additional history exists ZOSTER VACCINE (1 of 2) 06/11/2027 COLONOSCOPY - COLON CA SCREENING 01/26/2028 01/25/2023, 01/25/2023, 01/25/2023, Additional history exists Colorectal Cancer Screening 01/26/2028 LIPID TESTING 11/28/2028 11/29/2023, 05/28/2022, 11/13/2020, Additional history exists COLON MONITORING 01/25/2033 01/25/2023, 01/25/2023, 01/25/2023, Additional history exists DTAP/TDAP/TD VACCINES (3 - Td or Tdap) 01/02/2034 01/03/2024, 03/07/2013 INFLUENZA VACCINE (#1) 2034 1, 11/20/2009, 11/20/2008, Additional history exists Postponed from 10/22/2023 (Medical Contraindications (temporary)) HEPATITIS B VACCINE Completed 08/20/1998, 03/23/1998, 02/20/1998 HEPATITIS C SCREENING Completed 05/08/2019 HIV SCREENING Completed 05/08/2019 HIB VACCINE Aged Out No longer eligi ble based on patient's age to complete this topic HPV VACCINE Aged Out No longer eligi ble based on patient's age to complete this topic MENINGOCOCCAL (Group B) VACCINE Aged Out No longer eligible b ased on patient's age to complete this topic MENINGOCOCCAL VACCINE Aged Out No singh samy eligible based on patient's age to complete this topic PNEUMOCOCCAL VACCINE Aged Out No long er eligible based on patient's age to complete this topic Goals Goal Patient Goal Type Associated Problems Recent Progress Patient-Stated? Author Blood Pressure < 140/90 Blood Pressure 124/82(2023 2:40 PM BAND INSTRUMENT REPAIRER) No Charly Randall SSFransisca Lifestyle:Decre ase anxiety / depression / stress levels Lifestyle No Lorrie Graves A Quit smoking / using tobacco Lifestyle No GravesLorrie espinoza A Procedures Procedure Name Priority Date/Time Associated Diagnosis Comments COMPREHENSIVE METABOLIC PANEL Routine 11/29/2023 4:00 PM CDT Insulin resistance Essential hypertension LIPID PROFILE Routine 11/29/2023 4:00 PM CDT Insulin resistance Essential hypertension ENDOSCOPY, COLON, SCREENING Routine 01/25/2023 12:17 PM BAND INSTRUMENT REPAIRER Screen for colon cancer PAP IG LB+HPV APTIMA Routine 01/16/2023 4:08 PM BAND INSTRUMENT REPAIRER Well woman exam HEPATITIS C ANTIBODY Routine 05/08/2019 1:10 PM CDT STD exposure HIV-1 HIV-2 ANTIBODY W REFLX Routine 05/08/2019 1:10 PM CDT STD exposure from Last 3 Months or Most Recently Relevant to Health Maintenance Results * (ABNORMAL) COMPREHENSIVE METABOLIC PANEL (11/29/2023 4:00 PM CDT) Glucose CANCELED mg/dL [facility] ACCOUNT BILL Comment: [...] - 11/30/2023 8:18 AM CDT Performed at: [address] [id number] Belt Picker: Davian Ash PhD, Phone: [phone] Jacques Farley MD LAB - CHEMISTRY [facility] ACCOUNT BILL [address] [place] [address] * LIPID PROFILE (11/29/2023 4:00 PM CDT) [facility] Cholesterol 149 100 - 199 mg/dL [facility] [...] - 11/30/2023 8:18 AM CDT Performed at: [address] [id number] Belt Picker: Davian Ash PhD, Phone: [phone] Jacques Farley MD LAB - CHEMISTRY [facility] ACCOUNT BILL [address] [place] [address] * ENDOSCOPY, COLON, SCREENING (01/25/2023 12:17 PM BAND INSTRUMENT REPAIRER) Report Endoscopy POC _ Patient Name: Smitha Khan Procedure Date: 01/25/2023 12:17 PM Date of : 1975 Admit Type: Outpatient Age: 47 Gender: Female Ethnicity: Not or Race: White Attending MD: Kuldeep Davis MD, [id number] _ Procedure: Colonoscopy Indications: Screening for colorectal malignant neoplasm Providers: Kuldeep Davis MD (Doctor), David Bellamy, RN, Jannette Mcclure, Anti Air Warfare Operations Officer Patient Profile: 47F presents for screening colonoscopy [...] pathology results. Procedure Code(s): --- Professional --- 71438, Colonoscopy, flexible; with removal of tumor(s), polyp(s), or other lesion(s) by snare technique 27641, 59, Colonoscopy, flexible; with biopsy, single or multiple 13032, Colonoscopy, flexible; with directed submucosal injection(s), any substance --- Technical --- 91809, Colonoscopy, flexible; with removal of tumor(s), polyp(s), or other lesion(s) by snare technique 47697, 59, Colonoscopy, flexible; with biopsy, single or multiple 72570, Colonoscopy, flexible; with directed submucosal injection(s), any [...] flexure or splenic flexure) CPT copyright 2020 [employer]. All rights reserved. The codes documented in this report are preliminary and upon ice rink attendant review may be revised to meet current compliance requirements. Kuldeep Davis MD 01/25/2023 1:05:03 PM This report has been signed electronically. Number of Addenda: 0 Note Initiated On: 01/25/2023 12:17 PM [facility] ENDOSCOPY 01/25/2023 12:1 7 PM BAND INSTRUMENT REPAIRER Narrative Procedure Note Kuldeep Davis MD - 01/25/2023 1:05 PM CST Colonoscopy 5 polyps/adenomas resected, larger transverse colon lesion clipped x 2 Brief MRI/nsaid avoidance Rpt 3 yrs pending path See EGD from today D/w smitha Kuldeep Davis MD GI PROCEDURE ORDERAB LES [facility] ENDOSCOPY * (ABNORMAL) PAP IG LB+HPV APTIMA (01/16/2023 4:08 PM BAND INSTRUMENT REPAIRER) Diagnosis [facility] ACCOUNT BILL Comment: NEGATIVE FOR INTRAEPITHELIAL LESION OR MALIGNANCY. REACTIVE CELLULAR CHANGES AND/OR REPAIR ARE PRESENT. Specimen Adequacy [facility] ACCOUNT BILL Comment:Satisfactory for indio luation. No endocervical component is identified. Clinician Provided ICD10 [facility] ACCOUNT BILL Comment: Z01.419 L30.4 Performed by [facility] ACCOUNT BILL Comment:Kayla swenson, Torch Heater (ASCP) Electronically Signed by [facility] ACCOUNT BILL [...] [facility] ACCOUNT BILL Comment: The Thin Prep(R) Aquatic Director was unable to read this specimen. Therefore a manual review was performed. Result cannot be obtained for this observation. Human papillomavirus Aptima Positive(A) Negative [facility] ACCOUNT BILL Comment: This nucleic acid amplification test detects fourteen high-risk HPV types (16,18,31,33,35,39,45,51,52,56,58,59,66,68) without differentiation. Pathology/Cytolog y PART OF UTERINE CERVIX / Unknown 01/16/2023 4:08 PM BAND INSTRUMENT REPAIRER 01/17/2023 Narrative [facility] ACCOUNT BILL - 01/19/2023 1:09 PM BAND INSTRUMENT REPAIRER No. of containers..01 ThinPrep Vial Resulting Agency Comment Lab Testing performed at: [facility] [id number] Estuardo Mei MD LAB - PATHOLOGY/CYT OLOGY ORDERABLES Performing Organization Address City/[facility]/ZIP Co de Phone Number [facility] ACCOUNT BILL [address] [place] [address] * HIV-1 HIV-2 ANTIBODY W REFLX (05/08/2019 1:10 PM CDT) HIV-1 Antibody Negative Negative [facility] ACCOUNT BILL HIV-2 Antibody Negative Negative [facility] ACCOUNT BILL Interpretation Negative [facility] ACCOUNT BILL Comment:See RNA Reflex. Blood BLOOD SPECIMEN / Unknown 05/08/2019 1:10 PM CDT 05/08/2019 Narrative Resulting Agency Comment [facility]: [facility] [address] [facility] [id number] Estuardo Mei MD LAB - SEROLOGY ORDE RABLES [facility] ACCOUNT BILL [address] [place] [address] * HEPATITIS C ANTIBODY (05/08/2019 1:10 PM CDT) Hepatitis C Antibody <0.1 0.0 - 0.9 s/co ratio [facility] ACCOUNT BILL Comment: Negative: < 0.8 Indeterminate: 0.8 - 0.9 Positive: > 0.9 . The CDC recommends that a positive HCV antibody result be followed up with a HCV Nucleic Acid Amplification test (749483). Blood BLOOD SPECIMEN / Unknown 05/08/2019 1:10 PM CDT 05/08/2019 Narrative Resulting Agency Comment Lab Testing performed at: [facility] [address] [facility] [id number] Estuardo Mei MD LAB - CHEMISTRY ORD ERABLES [facility] ACCOUNT BILL [address] [place] [address] from Last 3 Months or Most Recently Relevant to Health Maintenance Advance Directives * Full Code (Latest Code Status on File) Date Activated Date Inactivated Comments 02/16/2023 2:09 PM 02/18/2023 12:54 PM * Full Code Date Activated Date Inactivated Comments 07/10/2019 12:01 AM 07/10/2019 1:02 PM * Full Code Date Activated Date Inactivated Comments 11/09/2017 5:55 PM 11/10/2017 9:05 PM * Full Code Date Activated Date Inactivated Comments 11/09/2017 5:55 PM 11/09/2017 5:55 PM * Full Code Date Activated Date Inactivated Comments 07/06/2015 11:50 PM 07/08/2015 2:18 PM Care Teams Special Education Preschool Teacher Relationship Specialty Start Date End Date Jacques Farley MD [address] [facility] [address] [place] [address] PCP - General 10/19/09 Estuardo Mei MD [address] [facility] [address] [place] [address] Obstetrics and Gynecology 02/24/15 Corbin Gonzalez MD [address] [address] Orthopedic Surgery 02/24/15 Antonio Ragsdale Jr., MD [address] [place] [address] Psychiatry 05/18/20 Cinda Ochoa, LAWN MAINTENANCE WORKER-INFECTIOUS DISEASE TECHNICIAN [address] [place] [address] [address] [place] [address] Nurse Practitioner Sleep Medicine 07/27/23
--- OUTSIDE RECORDS SUMMARY | 2024-04-09 18:40 | XMS_ITS | Referral Summary ---
Author Organization [facility] Address [address] [place] [address] Care Team Providers Care Family Practice Md Name Role Phone Jacques Farley MD Primary Care Provider [phone] Estuardo Mei MD Unavailable [phone] Corbin Gonzalez MD Unavailable [phone] Melyssa Robles MD, Antonio S Unavailable [phone] Cinda Ochoa [employer] [facility] Unavailable [phone] Source Comments [facility],non-owned Affiliates and Associated Physician Practices is amultiple site organization consisting of ambulatory clinics and hospital sitesin [place], [place], [place] and [place]. This disclosure is being madepursuant to the Care Everywhere program and may not contain all information available regarding this patient. Last updated 17.[facility] Allergies Active Allergy Reactions Criticality Noted Date [...] Active vitamin D, ergocalciferol, (Drisdol) 1.25 MG (36931 UT) capsuleIndications :Vitamin D insufficiency Take 1 [...] 01/07/2009 Overview (01/07/2009): Disc bulge L5-S1 MRI [facility]. About 2002 per the patient and [...] INFLUENZA VACCINE 11/15/2010,11/20/2009,11/21/19 09,11/20/2008 TDAP (7yrs+) 01/03/2024,03/07/2013 Social History Tobacco Use Types Packs/Day Years [...] Comments Blood Pressure 124/82 01/03/2024 2:40 PM CARGO SERVICE SUPERVISOR Pulse 92 01/03/2024 2:40 PM CARGO SERVICE SUPERVISOR Temperature 36.2 C (97.2 F) 01/03/2024 2:40 PM CARGO SERVICE SUPERVISOR Respiratory Rate 18 03/02/2023 11:28 AM CARGO SERVICE SUPERVISOR Oxygen Saturation 98% 01/03/2024 2:40 PM CARGO SERVICE SUPERVISOR Inhaled Oxygen Concentration - - Weight 89.4 kg (197 lb) 01/03/2024 2:40 PM CARGO SERVICE SUPERVISOR Height 152.4 cm (5') 07/27/2023 8:51 AM CDT Body Mass Index 38.47 07/27/2023 8:51 AM CDT Functional Status Functional Status Response Date of Assess ment Is person deaf or have serious hearing difficult y? No 02/18/2023 Is person blind or have serious difficulty seein g? No 02/18/2023 Does person have serious dif ficulty walking/climbing stairs? No 02/18/2023 Does person have difficulty dressing/bathing? No 02/18/2023 Does person have difficulty doing errands alone? No 02/18/2023 Cognitive Status Response Date of Assessm ent Does person have difficulty concentrating/remembering/making decisions? No 02/18/2023 Plan of Treatment Upcoming Encounters Date Type Department Care Team (Late st Contact Info) Description 07/16/2024 4:00 PM CDT Video Visit [facility] - Internal Medicine [address] [place] [id number] Jacques Farley MD [address] [place] [phone] 01/07/2025 3:30 PM CARGO SERVICE SUPERVISOR Office Visit [facility] - Internal Medicine [address] [place], [place] [address] [address] Jacques Farley MD [address] [facility] [address] [place] [address] Goals Goal Patient Goal Type Associated Problems Recent Progress Patient-Stated? Author Blood Pressure < 140/90 Blood Pressure 124/82(2023 2:40 PM CARGO SERVICE SUPERVISOR) No Charly Randall SSFransisca Lifestyle:Decre ase anxiety / depression / stress levels Lifestyle No Graves Marnice A Quit smoking / using tobacco Lifestyle No Graves, Marnice A Procedures Procedure Name Priority Date/Time Associated Diagnosis Comments COMPREHENSIVE METABOLIC PANEL Routine 11/29/2023 4:00 PM CDT Insulin resistance Essential hypertension LIPID PROFILE Routine 11/29/2023 4:00 PM CDT Insulin resistance Essential hypertension ENDOSCOPY, COLON, SCREENING Routine 01/25/2023 12:17 PM CARGO SERVICE SUPERVISOR Screen for colon cancer PAP IG LB+HPV APTIMA Routine 01/16/2023 4:08 PM CARGO SERVICE SUPERVISOR Well woman exam HEPATITIS C ANTIBODY Routine [...] 8:18 AM CDT Performed at: 01 - [address] [id number] Surveillance Technician: Davian Ash PhD, Phone: [phone] Jacques Farley MD LAB - CHEMISTRY HAYLIE BAPTISTE [facility] ACCOUNT BILL [address] [place] [address] * LIPID PROFILE (11/29/2023 4:00 PM CDT) Cholesterol 149 100 - 199 mg/dL [facility] [...] 11/30/2023 8:18 AM CDT Performed at: - [facility] [place] [id number] [place], [place] [id number] Surveillance Technician: Davian Ash PhD, Phone: [phone] Jacques Farley MD LAB - CHEMISTRY HAYLIE BAPTISTE [facility] ACCOUNT [facility] [address] [place] [address] * ENDOSCOPY, COLON, SCREENING (01/25/2023 12:17 PM CARGO SERVICE SUPERVISOR) Report Endoscopy POC _ Patient Name: Smitha Khan Procedure Date: 01/25/2023 12:17 PM Date of : 1975 Admit Type: Outpatient Age: 47 Gender: Female Ethnicity: Not or Race: White Attending MD: Kuldeep Davis MD, [id number] _ Procedure: Colonoscopy Indications: Screening for colorectal malignant neoplasm Providers: Kuldeep Davis MD (Doctor), David Bellamy RN, Jannette Mcclure, Cargo Broker Patient Profile: 47F presents for screening colonoscopy [...] pathology results. Procedure Code(s): --- Professional --- 31567, Colonoscopy, flexible; with removal of tumor(s), polyp(s), or other lesion(s) by snare technique 89010, 59, Colonoscopy, flexible; with biopsy, single or multiple 59849, Colonoscopy, flexible; with directed submucosal injection(s), any substance --- Technical --- 39783, Colonoscopy, flexible; with removal of tumor(s), polyp(s), or other lesion(s) by snare technique 33908, 59, Colonoscopy, flexible; with biopsy, single or multiple 74944, Colonoscopy, flexible; with directed submucosal injection(s), any [...] flexure or splenic flexure) CPT copyright 2020 [employer]. All rights reserved. The codes documented in this report are preliminary and upon control and recovery combat rescue review may be revised to meet current compliance requirements. Kuldeep Davis MD 01/25/2023 1:05:03 PM This report has been signed electronically. Number of Addenda: 0 Note Initiated On: 01/25/2023 12:17 PM [facility] ENDOSCOPY 01/25/2023 12:1 7 PM CARGO SERVICE SUPERVISOR Narrative Procedure Note Kuldeep Davis MD - 01/25/2023 1:05 PM CST Colonoscopy 5 polyps/adenomas resected, larger transverse colon lesion clipped x 2 Brief MRI/nsaid avoidance Rpt 3 yrs pending path See EGD from today D/w smitha Kuldeep Davis MD GI PROCEDURE ORDERAB LES [facility] ENDOSCOPY * (ABNORMAL) PAP IG LB+HPV APTIMA (01/16/2023 4:08 PM CARGO SERVICE SUPERVISOR) Diagnosis [facility] ACCOUNT BILL Comment: NEGATIVE FOR INTRAEPITHELIAL LESION OR MALIGNANCY. REACTIVE CELLULAR CHANGES AND/OR REPAIR ARE PRESENT. Specimen Adequacy [facility] ACCOUNT BILL Comment:Satisfactory for indio luation. No endocervical component is identified. Clinician Provided ICD10 [facility] ACCOUNT BILL Comment: Z01.419 L30.4 Performed by [facility] ACCOUNT BILL Comment:Kayla swenson, Rehabilitation Counsellor (ASCP) Electronically Signed by [facility] ACCOUNT BILL [...] [facility] ACCOUNT BILL Comment: The Thin Prep(R) Community Sports Coordinator was unable to read this specimen. Therefore a manual review was performed. Result cannot be obtained for this observation. Human papillomavirus Aptima Positive(A) Negative [facility] ACCOUNT BILL Comment: This nucleic acid amplification test detects fourteen high-risk HPV types (16,18,31,33,35,39,45,51,52,56,58,59,66,68) without differentiation. Pathology/Cytolog y PART OF UTERINE CERVIX / Unknown 01/16/2023 4:08 PM CARGO SERVICE SUPERVISOR 01/17/2023 Narrative [facility] ACCOUNT BILL - 01/19/2023 1:09 PM CARGO SERVICE SUPERVISOR No. of containers..01 ThinPrep Vial Resulting Agency Comment Lab Testing performed at: [facility] [place] [id number] Estuardo Mei MD LAB - PATHOLOGY/CYT OLOGY ORDERABLES Performing Organization Address City/[facility]/ZIP Co de Phone Number [facility] ACCOUNT BILL [address] [place] [address] * HIV-1 HIV-2 ANTIBODY W REFLX (05/08/2019 1:10 PM CDT) HIV-1 Antibody Negative Negative [facility] ACCOUNT BILL HIV-2 Antibody Negative Negative [facility] ACCOUNT BILL Interpretation Negative [facility] ACCOUNT BILL Comment:See RNA Reflex. Blood BLOOD SPECIMEN / Unknown 05/08/2019 1:10 PM CDT 05/08/2019 Narrative Resulting Agency Comment Lab Testing performed at: [facility] [address] [facility] [id number] Estuardo Mei MD LAB - SEROLOGY ORDE RABDAVIS Performing Organization Address City/[facility]/ZIP Co de Phone Number [facility] ACCOUNT BILL [address] [place] [address] * HEPATITIS C ANTIBODY (05/08/2019 1:10 PM CDT) Hepatitis C Antibody <0.1 0.0 - 0.9 s/co ratio [facility] ACCOUNT BILL Comment: Negative: < 0.8 Indeterminate: 0.8 - 0.9 Positive: > 0.9 . The CDC recommends that a positive HCV antibody result be followed up with a HCV Nucleic Acid Amplification test (541491). Blood BLOOD SPECIMEN / Unknown 05/08/2019 1:10 PM CDT 05/08/2019 Narrative Resulting Agency Comment Lab Testing performed at: [facility] [address] [facility] [id number] Estuardo Mei MD LAB - CHEMISTRY ORD ERABLES [facility] ACCOUNT BILL [address] [place] [address] from Last 3 Months or Most Recently [...] 11:50 PM 07/08/2015 2:18 PM Care Teams Family Practice Md Relationship Specialty Start Date End Date Jacques Farley MD [address] [facility] [address] [place] [address] PCP - General 10/19/09 Estuardo Mei MD [address] [facility] [address] [place] [address] Obstetrics and Gynecology 02/24/15 Corbin Gonzalez MD [address] [facility] [address] [place] [address] Orthopedic Surgery 02/24/15 Antonio Ragsdale Jr., MD [address] [place] [address] Psychiatry 05/18/20 Cinda Ochoa, [employer]ER [employer] [address] [facility] [address] [place] [address] Nurse Practitioner Sleep Medicine 07/27/23
[2024-04-09 18:52] VITALS: BP 122/82; PULSE 89; RESP 16; TEMP 38.1; O2SAT 98
--- NOTE | 2024-04-09 19:05 | ED_ITS ---
HPI - General Adult General Chief complaint: Upper Respiratory Infection Stated complaint: fever / cough /headache History of Present Illness HPI narrative: Smitha Hawkins is a 48 y/o female who presents today with complaints having body aches, cough fever not feeling well that started last night. Denies any nausea vomiting shortness of breath chest pain. Related Data Allergies Allergy/AdvReac Type Severity Reaction Status Date / Time Penicillins Allergy Mild RASH Verified 04/09/24 19:00 Review of Systems Review of Systems: All systems reviewed & are unremarkable except as noted in HPI and below Exam Narrative: GENERAL: Well-appearing, well-nourished, and in no acute distress. HEAD: Normocephalic, atraumatic. EYES: PERRLA and EOMI. ENT: Nares clear, no rhinorrhea or epistaxis. Mucous membranes moist. Oropharynx without tonsillar hypertrophy exudate or other lesions. Bilateral TMs pearly devine nonbulging NECK: Supple. No adenopathy or masses. No carotid bruits or JVD CHEST: Clear to auscultation. No respiratory distress. No wheezes rales or r honchi HEART: Regular rate and rhythm. No murmur heard. Normal peripheral pulses. ABDOMEN: Soft, nontender, nondistended, normal active bowel sounds. EXTREMITIES: Normal range of motion. No edema. SKIN: Warm, dry, no rash. NEURO: No focal deficits. Alert and oriented x3. PSYCH: Normal mood and affect. Course Course Level of Care: Express Care Visit Vital Signs Vital signs: Vital Signs Temperature 38.1 C H 04/09/24 18:52 Pulse Rate 89 04/09/24 18:52 Respiratory Rate 16 04/09/24 18:52 Blood Pressure 122/82 04/09/24 18:52 Pulse Oximetry 98 04/09/24 18:52 Oxygen Delivery Room Air 04/09/24 18:52 Temperature 38.1 C H 04/09/24 18:52 Pulse Rate 89 04/09/24 18:52 Respiratory Rate 16 04/09/24 18:52 Blood Pressure 122/82 04/09/24 18:52 Pulse Oximetry 98 04/09/24 18:52 Oxygen Delivery Room Air 04/09/24 18:52 Medical Decision Making MDM Narrative Medical decision making narrative: ED COURSE AND MEDICAL DECISION MAKING: This 48 year old patient presents with symptoms most suggestive of viral upper respiratory tract infection. Lungs are clear bilaterally without any respiratory distress or accessory muscle use. Viral swab : Negative Patient discharged home in stable condition with expectant management. Return precautions were provided. Procedures: Pulse oximetry interpretation - not hypoxic. Review of medical records. Encouraged rest/ hydration/ Tylenol / Motrin DISPOSITION: Discharged home in stable condition. IMPRESSION: Acute upper respiratory tract infection, likely viral. Medical Records Medical records reviewed: Yes I reviewed the external patient's medical records. Vital Signs Vital Signs: Vital Signs Temperature 38.1 C H 04/09/24 18:52 Pulse Rate 89 04/09/24 18:52 Respiratory Rate 16 04/09/24 18:52 Blood Pressure 122/82 04/09/24 18:52 Pulse Oximetry 98 04/09/24 18:52 Oxygen Delivery Room Air 04/09/24 18:52 Temperature 38.1 C H 04/09/24 18:52 Pulse Rate 89 04/09/24 18:52 Respiratory Rate 16 04/09/24 18:52 Blood Pressure 122/82 04/09/24 18:52 Pulse Oximetry 98 04/09/24 18:52 Oxygen Delivery Room Air 04/09/24 18:52 vitals reviewed by me Lab Data Lab results reviewed: Yes I reviewed the patient's lab results. Discharge Plan Discharge Clinical Impression: Upper respiratory infection Qualifiers: URI type: unspecified URI Qualified Code(s): J06.9 - Acute upper respiratory infection, unspecified Patient Disposition: Home, Self-Care Condition: Stable Instructions: Antibiotic Form Additional Instructions: You have viral upper respiratory infection Continue to take Tylenol / Motrin Push oral hydration Follow up with your PCP in 1 week to ensure you are improving If you develop any worsening symptoms such as chest pain/ shortness of breath/ vomiting return or proceed to the ER Patient Language: Tunisian Follow-up/Referrals: Lilia,Jacques [Other] - 1 Week Time of Disposition: 19:12
[2024-04-09 19:07] LABS: EDINFLUASCREEN Negative (Negative); EDINFLUBSCREEN Negative (Negative)
[2024-04-09 19:10] LABS: EDCOVIDSCREEN Negative (Negative)
== END 2024-04-09 19:26 | disposition home or self-care (01) ==
PROVIDERS: Emergency Provider Nurse Practitioner Family
DX: J06.9 Acute upper respiratory infection, unspecified (principal); Z20.822 Contact with and (suspected) exposure to COVID-19
CPT/HCPCS: 87426; 87804; 99202; G0463